=== PATIENT | female | born 1950 | race Caucasian/White ===

== ENCOUNTER 2021-01-14 13:42 | Inpatient (IN) | payer MEDICARE, OTHER ==
[2021-01-14] MEDS ORDERED: Sodium Chloride 0.9% 1,000 ML IV ONE ×2 (14:14→19:05)
[2021-01-14] MEDS ORDERED: Ondansetron 4 MG/2 ML SDV IVPUSH ONE (14:15)
[2021-01-14] MEDS ORDERED: Pantoprazole 80 MG in Sodium Chloride 0.9% 20 ML IVPUSH ONE (14:16)
--- NOTE | 2021-01-14 14:27 | PCM.EKG ---
#1 Interpretation EKG Date: 01/14/21 Time: 14:22 Rhythm: NSR Rate (Beats/Min): 81 ST-T: Normal
--- NOTE | 2021-01-14 15:12 | CR ---
INDICATION: Vomiting. TECHNIQUE: Single portable AP image. COMPARISON: None. FINDINGS: Lungs low in volume, clear. Patient rotated. No pleural effusion. Heart, mediastinum and pulmonary vessels within normal limits, allowing for the shallow inspiration. Post coronary bypass. Right chest and left axillary postop changes also. No significant osseous abnormality. IMPRESSION: Essentially negative, allowing for low lung volumes. Dictated by Marlon Garcia MD @ 01/14/2021 3:12:[address] Marlon Garcia @ Jan 14 2021 3:12PM
[2021-01-14 15:30] LABS: BLOOD UREA NITROGEN,BUN 17 mg/dL (7.0-18.0); CARBON DIOXIDE,CO2 29.4 mmol/L (21.0-32.0); CHLORIDE,CL 102 mmol/L (98-107); GLUCOSE RANDOM 115 mg/dL (74-106); LIPASE 58 U/L (73-393); POTASSIUM,K 4.7 mmol/L (3.5-5.1); SODIUM,NA 139 mmol/L (136-145)
[2021-01-14] MEDS ORDERED: cefTRIAXone 1 GM in Premix Bag 1 BAG IV ONE (15:51)
[2021-01-14] MEDS ORDERED: Iopamidol 755 Mg/ML 100 ML Bottle IVPUSH ONE (16:13)
--- NOTE | 2021-01-14 16:55 | CT ---
INDICATION: Abdominal pain. Poor historian. TECHNIQUE: Volumetric helical scanning of the abdomen and pelvis was performed with 100 cc of Isovue 370 contrast material IV. Coronal and sagittal reconstructions were obtained. COMPARISON: None. FINDINGS: There is no evidence of bowel obstruction or inflammation. There is a large amount of formed stool throughout the colon. The appendix is normal. Post op changes of cholecystectomy are demonstrated. The bile ducts, liver, spleen, adrenal glands, kidneys and pancreas are unremarkable. No lymphadenopathy or free fluid is evident. The uterus and ovaries are unremarkable. The lung bases are clear, and the heart size is normal. Postop changes of coronary bypass and right mastectomy are noted. IMPRESSION: 1. Constipation. 2. Post cholecystectomy, coronary bypass and right mastectomy. Please note that all CT scans at this facility use dose modulation, iterative reconstruction, and/or weight-based dosing when appropriate to reduce radiation dose to as low as reasonably achievable. Dictated by Marlon Garcia MD @ 01/14/2021 4:53:[address] Marlon Garcia @ Jan 14 2021 4:53PM
--- NOTE | 2021-01-14 17:10 | EDM.PDOC ---
ED HPI GENERAL MEDICAL PROBLEM - General Chief Complaint: Gastrointestinal Problem Stated Complaint: VOMITTING Time Seen by Provider: 01/14/21 13:46 Source of Information: Reports: Patient, Family History Limitations: Reports: No Limitations - History of Present Illness INITIAL COMMENTS - FREE TEXT/NARRATIVE: HISTORY AND PHYSICAL: History of present illness: Patient is a 70-year-old female who presents to the ED today with her daughter for concern of vomiting x7 days. Patient states that she has not been able to eat or drink any food or fluids for the past 7 days without immediately vomiting. Patient's daughter states that she currently has a urinary tract infection but has not been able to keep the antibiotics down which was diagnosed in the clinic. Daughter states that patient was provided with Zofran to try to keep the antibiotics down, but despite using the Zofran, has been vomiting and not able to take the antibiotics. Patient states that approximately 2 months ago, her and she has been more depressed and since then. Patient states she is having some associated epigastric discomfort with vomiting. Patient also notes that her throat and stomach feel like they are burning from excessive vomiting. Patient has a history of coronary artery disease, hypertension. Patient denies fever, chills, chest pain, shortness of breath, or cough. Denies headache, neck stiff ness, change in vision, syncope, or near syncope. Denies diarrhea, constipation. Has not noted any blood in urine or stool. Review of systems: As per history of present illness and below otherwise all systems reviewed and negative. Past medical history: As per history of present illness and as reviewed below otherwise noncontributory. Surgical history: As per history of present illness and as reviewed below otherwise noncontributory. Social history: See social history for further information Family history: As per history of present illness and as reviewed below otherwise noncontributory. Physical exam: General: Patient is alert, oriented, and in no acute distress. Patient laying comfortably on exam table. Vitals stable and reviewed by me. HEENT: Atraumatic, normocephalic, pupils equal and reactive bilaterally, negative for conjunctival pallor or scleral icterus, mucous membranes dry, throat clear, neck supple, nontender, trachea midline. No drooling or trismus noted. No meningeal signs. No hot potato voice noted. Lungs: Clear to auscultation, breath sounds equal bilaterally, chest nontender. Heart: S1S2, regular rate and rhythm without overt murmur Abdomen: Soft, nondistended, mild epigastric tenderness to palpation. Negative for masses or hepatosplenomegaly. Negative for costovertebral tenderness. Pelvis: Stable nontender. Genitourinary: Deferred. Rectal: Deferred. Skin: Intact, warm, dry. No lesions or rashes noted. Extremities: Atraumatic, negative for cords or calf pain. Neurovascular unremarkable. Neuro: Awake, alert, oriented. Cranial nerves II through XII unremarkable. Cerebellum unremarkable. Motor and sensory unremarkable throughout. Exam nonfocal. Notes: Upon arrival to the ED, patient is vitally stable, and in no acute distress. She does appear quite dry on exam and her mucous membranes are dry and tacky. She is vitally stable, however, will initiate IV fluids for dehydration and obtain cardiac lab work and abdominal pelvic CT scan with contrast. See Dr. Rocha's dictation for specific EKG interpretation. Normal sinus rhythm without signs of acute ischemia. Lab work shows a mild elevation in creatinine at 1.1. Otherwise mild derangements unremarkable. Troponin negative. Lipase within normal limits. Urinalysis shows 15-20 white blood cells with positive leukocyte esterase and 15 ketones suggestive of urinary tract infection with likely dehydration. Chest x-ray is essentially negative, allowing for low lung volumes. Abdominal pelvic CT indicates constipation status post cholecystectomy, coronary artery bypass and right mastectomy. Upon reevaluation of patient, she remains vitally stable and has improvement of her nausea but does have occasional dry heaving episodes. I did call and speak to the hospitalist on-call, Dr. Andrews, and thoroughly discussed patient's case. Will admit to observation. Voices understanding and is agreeable to plan of care. Denies any further questions or concerns at this time. Diagnostics: EKG, CBC, CMP, UA, chest x-ray, troponin, lipase, abdominal pelvic CT, urine culture Therapeutics: Saline, Zofran, Protonix, Rocephin Impression: Urinary tract infection Intractable vomiting Dehydration Plan: Admit to observation Dr. Andrews Definitive disposition and diagnosis as appropriate pending reevaluation and review of above. 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 ED EXAM, GENERAL - Physical Exam Exam: See Below (see dictation) Course - Vital Signs Last Recorded V/S: Last Vital Signs Temp 97.2 F 01/14/21 13:54 Pulse 74 01/14/21 15:00 Resp 17 01/14/21 15:00 BP 144/75 H 01/14/21 15:00 Pulse Ox 96 01/14/21 15:00 - Orders/Labs/Meds Orders: Active Orders 24 hr Category Date Time Status Cardiac Monitoring [RC] . DIRECTED Care 01/14/21 14:16 Active EKG Documentation Completion [RC] STAT Care 01/14/21 14:16 Active COVID-19/FLU A+B [MOLEC] Stat Lab 01/14/21 14:15 Ordered CULTURE URINE [RM] Stat Lab 01/14/21 15:25 Received Medication Orders Docusate Sodium (Docusate Sodium 100 Mg Cap) 100 mg PO BID [facility] Heparin Sodium (Porcine) (Heparin Sodium 5,000 Units/Ml Vial) 5,000 units SUBCUT Q8H GLEN Ceftriaxone Sodium/Dextrose 1 (gm/ Premix) 50 mls @ 100 mls/hr IV Q24H GLEN Sodium Chloride (Normal Saline) 1,000 mls @ 75 mls/hr IV CONTINUOUS ONE Stop: 01/15/21 08:24 Pantoprazole Sodium 40 mg/ (Sodium Chloride) 10 mls @ 300 mls/hr IV Q24H GLEN Ondansetron HCl (Ondansetron 4 Mg Tab.Dis) 4 mg PO Q4H PRN PRN Reason: nausea, able to take PO Labs: Laboratory Tests 01/14/21 01/14/21 01/14/21 Range/Units 14:40 14:40 15:25 WBC 10.36 (4.0-11.0) K/uL RBC 5.06 (4.30-5.90) M/uL Hgb 15.5 (12.0-16.0) g/dL Hct 47.2 H (36.0-46.0) % MCV 93.3 (80.0-98.0) fL MCH 30.6 (27.0-32.0) pg MCHC 32.8 (31.0-37.0) g/dL RDW Std Deviation 50.7 (28.0-62.0) fl RDW Coeff of Payam 15 (11.0-15.0) % Plt Count 268 (150-400) K/uL MPV 11.50 (7.40-12.00) fL Neut % (Auto) 72.1 (48.0-80.0) % Lymph % (Auto) 21.1 (16.0-40.0) % [place] % (Auto) 6.4 (0.0-15.0) % Eos % (Auto) 0.2 (0.0-7.0) % Baso % (Auto) 0.2 (0.0-1.5) % Neut # (Auto) 7.5 H (1.4-5.7) K/uL Lymph # (Auto) 2.2 (0.6-2.4) K/uL [place] # (Auto) 0.7 (0.0-0.8) K/uL Eos # (Auto) 0.0 (0.0-0.7) K/uL Baso # (Auto) 0.0 (0.0-0.1) K/uL Nucleated RBC % 0.0 /100WBC Nucleated RBCs # 0 K/uL Sodium 139 (136-145) mmol/L Potassium 4.7 (3.5-5.1) mmol/L Chloride 102 (98-107) mmol/L Carbon Dioxide 29.4 (21.0-32.0) mmol/L BUN 17 (7.0-18.0) mg/dL Creatinine 1.1 H (0.6-1.0) mg/dL Est Cr Clr Drug Dosing 49.65 mL/min Estimated GFR (MDRD) 48.8 ml/min Glucose 115 H (74-106) mg/dL Calcium 9.4 (8.5-10.1) mg/dL Total Bilirubin 0.4 (0.2-1.0) mg/dL AST 11 L (15-37) IU/L ALT 14 (14-63) IU/L Alkaline Phosphatase 97 (46-116) U/L Troponin I < 0.050 (0.000-0.056) ng/mL Total Protein 7.5 (6.4-8.2) g/dL Albumin 3.4 (3.4-5.0) g/dL Globulin 4.1 H (2.6-4.0) g/dL Albumin/Globulin Ratio 0.8 L (0.9-1.6) Lipase 58 L (73-393) U/L Urine Color YELLOW Urine Appearance SLT CLOUDY Urine pH 5.5 (5.0-8.0) Ur Specific [place] >= 1.030 (1.001-1.035) Urine Protein NEGATIVE (NEGATIVE) mg/dL Urine Glucose (UA) NEGATIVE (NEGATIVE) mg/dL Urine Ketones 15 H (NEGATIVE) mg/dL Urine Occult Blood NEGATIVE (NEGATIVE) Urine Nitrite NEGATIVE (NEGATIVE) Urine Bilirubin SMALL H (NEGATIVE) Urine Ictotest NEGATIVE Urine Urobilinogen 0.2 (<2.0) EU/dL Ur Leukocyte Esterase SMALL H (NEGATIVE) Urine RBC 0-2 (0-2/HPF) Urine WBC 15-20 (0-5/HPF) Ur Epithelial Cells FEW (NONE-FEW) Urine Bacteria FEW (NEGATIVE) Meds: Medications Generic Name Dose Route Start Last Admin Trade Name Freq PRN Reason Stop Dose Admin Docusate Sodium 100 mg 01/14/21 21:00 Docusate Sodium 100 Mg Cap PO BID GLEN Heparin Sodium (Porcine) 5,000 units 01/14/21 20:00 Heparin Sodium 5,000 Units/Ml Vial SUBCUT Q8H GLEN Ceftriaxone Sodium/Dextrose 1 50 mls @ 100 mls/hr 01/15/21 19:00 gm/ Premix IV Q24H GLEN Sodium Chloride 1,000 mls @ 75 mls/hr 01/14/21 19:05 Normal Saline IV 01/15/21 08:24 CONTINUOUS ONE Pantoprazole Sodium 40 mg/ 10 mls @ 300 mls/hr 01/15/21 19:00 Sodium Chloride IV Q24H GLEN Ondansetron HCl 4 mg 01/14/21 19:01 Ondansetron 4 Mg Tab.Dis PO Q4H PRN nausea, able to take PO Discontinued Medications Generic Name Dose Route Start Last Admin Trade Name Freq PRN Reason Stop Dose Admin Sodium Chloride 1,000 mls @ 500 mls/hr 01/14/21 14:14 01/14/21 14:33 Normal Saline IV 01/14/21 16:13 500 mls/hr BOLUS ONE Administration Pantoprazole Sodium 80 mg/ 20 mls @ 420 mls/hr 01/14/21 14:16 01/14/21 14:37 Sodium Chloride IVPUSH 01/14/21 14:18 420 mls/hr ONETIME ONE Administration Ceftriaxone Sodium/Dextrose 1 50 mls @ 100 mls/hr 01/14/21 15:51 01/14/21 17:16 gm/ Premix IV 01/14/21 16:20 100 mls/hr ONETIME ONE Administration Pantoprazole Sodium 40 mg/ 10 mls @ 300 mls/hr 01/14/21 19:15 Sodium Chloride IV Q24H GLEN Iopamidol 100 ml 01/14/21 16:13 01/14/21 16:13 Iopamidol 755 Mg/Ml 100 Ml Bottle IVPUSH 01/14/21 16:14 100 ml ONETIME ONE Administration Ondansetron HCl 4 mg 01/14/21 14:15 01/14/21 14:33 Ondansetron 4 Mg/2 Ml Sdv IVPUSH 01/14/21 14:16 4 mg ONETIME ONE Administration Departure - Departure Time of Disposition: 17:09 Disposition: Refer to Observation Clinical Impression: Dehydration Urinary tract infection Qualifiers: Urinary tract infection type: acute cystitis Hematuria presence: without hematuria Qualified Code(s): N30.00 - Acute cystitis without hematuria Intractable vomiting Qualifiers: Vomiting type: unspecified Nausea presence: with nausea Qualified Code(s): R11.2 - Nausea with vomiting, unspecified - Discharge Information Sepsis Event Note (ED) - Evaluation Sepsis Screening Result: No Definite Risk - Focused Exam Vital Signs: Vital Signs Temp Pulse Resp BP Pulse Ox 01/14/21 15:00 74 17 144/75 H 96 01/14/21 13:54 97.2 F 89 20 121/97 H 96 - My Orders Last 24 Hours: My Active Orders 01/14/21 14:15 COVID-19/FLU A+B [MOLEC] Stat 01/14/21 14:16 Cardiac Monitoring [RC] . DIRECTED EKG Documentation Completion [RC] STAT 01/14/21 15:25 CULTURE URINE [RM] Stat - Assessment/Plan Last 24 Hours: My Active Orders 01/14/21 14:15 COVID-19/FLU A+B [MOLEC] Stat 01/14/21 14:16 Cardiac Monitoring [RC] . DIRECTED EKG Documentation Completion [RC] STAT 01/14/21 15:25 CULTURE URINE [RM] Stat
--- NOTE | 2021-01-14 18:49 | PCM.HP.2 ---
H&P History of Present Illness - General Date of Service: 01/14/21 Admit Problem/Dx: Admission Diagnosis/Problem Admission Diagnosis/Problem Urinary tract infection Source of Information: Patient, Family - History of Present Illness Initial Comments - Free Text/Narative: Patient is a 70-year-old female with a significant past medical history of breast cancer status post right mastectomy, coronary artery disease status post stent placement, AAA repair, daily tobacco abuse of 1 pack/day: Presenting today accompanied with daughter with worsening nausea/vomiting x3 to 4 days. Per daughter patient was recently discharged from a outpatient custodial facility in [place] and had traveled here arriving to [place] on Sunday was still having continuous nausea vomiting and no bowel movements x7 days. Has been seen by an outpatient provider and provided antibiotics for UTI however did not complete this antibiotic secondary to persistent nausea/vomiting. Patient also has been not eating/drinking due to initial complaint but otherwise is not having any fevers, chills, chest pain, shortness of breath, lower extremity swelling. ED course: EKG: NSR without ST elevation/depression. CMP: 1.1 creatinine with HANS. Troponin negative. Lipase negative. UA positive for leukocyte esterase and ketones. Chest x-ray negative allowing for low lung volumes. Abdominal pelvic CT suggests constipation status post cholecystectomy coronary bypass and right mastectomy Patient was given 1 L fluid, Zofran and Rocephin Bedside: Admits to similar story as above. Endorses that she was supposed to be admitted to the local custodial/[place] however was too sick to be admitted and proceeded to the ED. 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: Endocrine/Metabolic History: Reports: Other (See Below) Other Endocrine/Metabolic History: pt states she had elevated blood sugar "a long time ago" - Past Surgical History Cardiovascular Surgical History: Reports: AAA Repair Female Surgical History: Reports: None Endocrine Surgical History: Reports: None Social & Family History - Family History Family Medical History: No Pertinent Family History - Tobacco Use Tobacco Use Status *Q: Never Tobacco User Second Hand Smoke Exposure: No - Caffeine Use Caffeine Use: Reports: None - Recreational Drug Use Recreational Drug Use: No H&P Review of Systems - Review of Systems: Review Of Systems: See Below General: Denies: Fever, Chills, Malaise, Weakness HEENT: Reports: No Symptoms Pulmonary: Reports: No Symptoms Cardiovascular: Reports: No Symptoms Gastrointestinal: Reports: Constipation, Decreased Appetite, Flatus, Vomiting. Denies: Abdominal Pain, Diarrhea Genitourinary: Denies: Dysuria, Burning, Pain, Urgency, Hematuria Skin: Reports: No Symptoms Psychiatric: Reports: No Symptoms Neurological: Reports: Headache Exam - Exam Exam: See Below - Vital Signs Vital Signs: Last Vital Signs Temp 97.2 F 01/14/21 13:54 Pulse 74 01/14/21 15:00 Resp 17 01/14/21 15:00 BP 144/75 H 01/14/21 15:00 Pulse Ox 96 01/14/21 15:00 Weight: 68.039 kg - Exam Quality Assessment: No: Supplemental Oxygen General: Alert, Oriented, Cooperative HEENT: Other (mildly dry oral mucosa ) Neck: Supple, Trachea Midline Lungs: Normal Respiratory Effort, Other (mildly diminshed BS bilatareally ; no increased WOB ) Cardiovascular: Regular Rate, Regular Rhythm GI/Abdominal Exam: Soft, Non-Tender Extremities: Normal Inspection Skin: Warm, Dry Neuro Extensive - Mental Status: Alert, Oriented x3, Normal Mood/Affect Psychiatric: Alert, Normal Mood - Patient Data Lab Results Last 24 hrs: Laboratory Results - last 24 hr 01/14/21 01/14/21 01/14/21 Range/Units 14:40 14:40 15:25 WBC 10.36 (4.0-11.0) K/uL RBC 5.06 (4.30-5.90) M/uL Hgb 15.5 (12.0-16.0) g/dL Hct 47.2 H (36.0-46.0) % MCV 93.3 (80.0-98.0) fL MCH 30.6 (27.0-32.0) pg MCHC 32.8 (31.0-37.0) g/dL RDW Std Deviation 50.7 (28.0-62.0) fl RDW Coeff of [place] 15 (11.0-15.0) % Plt Count 268 (150-400) K/uL MPV 11.50 (7.40-12.00) fL Neut % (Auto) 72.1 (48.0-80.0) % Lymph % (Auto) 21.1 (16.0-40.0) % [place] % (Auto) 6.4 (0.0-15.0) % Eos % (Auto) 0.2 (0.0-7.0) % Baso % (Auto) 0.2 (0.0-1.5) % Neut # (Auto) 7.5 H (1.4-5.7) K/uL Lymph # (Auto) 2.2 (0.6-2.4) K/uL [place] # (Auto) 0.7 (0.0-0.8) K/uL Eos # (Auto) 0.0 (0.0-0.7) K/uL Baso # (Auto) 0.0 (0.0-0.1) K/uL Nucleated RBC % 0.0 /100WBC Nucleated RBCs # 0 K/uL Sodium 139 (136-145) mmol/L Potassium 4.7 (3.5-5.1) mmol/L Chloride 102 (98-107) mmol/L Carbon Dioxide 29.4 (21.0-32.0) mmol/L BUN 17 (7.0-18.0) mg/dL Creatinine 1.1 H (0.6-1.0) mg/dL Est Cr Clr Drug Dosing 49.65 mL/min Estimated GFR (MDRD) 48.8 ml/min Glucose 115 H (74-106) mg/dL Calcium 9.4 (8.5-10.1) mg/dL Total Bilirubin 0.4 (0.2-1.0) mg/dL AST 11 L (15-37) IU/L ALT 14 (14-63) IU/L Alkaline Phosphatase 97 (46-116) U/L Troponin I < 0.050 (0.000-0.056) ng/mL Total Protein 7.5 (6.4-8.2) g/dL Albumin 3.4 (3.4-5.0) g/dL Globulin 4.1 H (2.6-4.0) g/dL Albumin/Globulin Ratio 0.8 L (0.9-1.6) Lipase 58 L (73-393) U/L Urine Color YELLOW Urine Appearance SLT CLOUDY Urine pH 5.5 (5.0-8.0) Ur Specific [place] >= 1.030 (1.001-1.035) Urine Protein NEGATIVE (NEGATIVE) mg/dL Urine Glucose (UA) NEGATIVE (NEGATIVE) mg/dL Urine Ketones 15 H (NEGATIVE) mg/dL Urine Occult Blood NEGATIVE (NEGATIVE) Urine Nitrite NEGATIVE (NEGATIVE) Urine Bilirubin SMALL H (NEGATIVE) Urine Ictotest NEGATIVE Urine Urobilinogen 0.2 (<2.0) EU/dL Ur Leukocyte Esterase SMALL H (NEGATIVE) Urine RBC 0-2 (0-2/HPF) Urine WBC 15-20 (0-5/HPF) Ur Epithelial Cells FEW (NONE-FEW) Urine Bacteria FEW (NEGATIVE) Result Diagrams: 01/14/21 14:40 01/14/21 14:40 Sepsis Event Note - Evaluation Sepsis Screening Result: No Definite Risk - Focused Exam Vital Signs: Vital Signs Temp Pulse Resp BP Pulse Ox 01/14/21 15:00 74 17 144/75 H 96 01/14/21 13:54 97.2 F 89 20 121/97 H 96 - Problem List (1) Constipation SNOMED Code(s): 94566779 ICD Code: K59.00 - CONSTIPATION, UNSPECIFIED Status: Acute Current Visit: Yes (2) Urinary tract infection SNOMED Code(s): 69021375 ICD Code: N39.0 - URINARY TRACT INFECTION, SITE NOT SPECIFIED Status: Acute Current Visit: Yes Qualifiers: Urinary tract infection type: acute cystitis Hematuria presence: without hematuria Qualified Code(s): N30.00 - Acute cystitis without hematuria (3) Intractable vomiting SNOMED Code(s): 668284793 ICD Code: R11.10 - VOMITING, UNSPECIFIED Status: Acute Current Visit: Yes Qualifiers: Vomiting type: unspecified Nausea presence: with nausea Qualified Code(s): R11.2 - Nausea with vomiting, unspecified (4) Dehydration SNOMED Code(s): 01002362 ICD Code: E86.0 - DEHYDRATION Status: Acute Current Visit: Yes Problem List Initiated/Reviewed/Updated: Yes Orders Last 24hrs: Active Orders 24 hr Category Date Time Status Admission Status [Patient Status] [ADT] Stat ADT 01/14/21 17:08 Active Cardiac Monitoring [RC] . DIRECTED Care 01/14/21 14:16 Active EKG Documentation Completion [RC] STAT Care 01/14/21 14:16 Active COVID-19/FLU A+B [MOLEC] Stat Lab 01/14/21 14:15 Ordered CULTURE URINE [RM] Stat Lab 01/14/21 15:25 Received Assessment/Plan Comment:: Assessment: 1. Intractable nausea and vomiting in the setting of UTI/constipation 2. Urinary tract infection 3. Constipation 4. Past medical history: Breast cancer status postmastectomy, coronary artery disease status post coronary artery placement not on anticoagulation, daily tobacco abuse Plan Admit to observation. DNR/DNI. I's and O's per routine. Vitals per routine. DVT prophylaxis: SCDs GI prophylax pantoprazole 40 daily. 1. Intractable nausea/vomiting: Etiology most likely from constipation in light of her UTI; continue ceftriaxone awaiting urine cultures. Last bowel movement 4 to 5 days prior possibly longer; consider oral stool softeners and be more aggressive if necessary; Continue IV fluids due to mild dehydration noted on examination and on UA CT abdomen otherwise did not show any other acute processes. 2. UTI: continue CTX q 24 hrs; Ucx pending pt denies any back pain/flank pain no abdominal/flank tenderness appreciated 3. Constipation: Colace BID scheduled for now ; IV fluids of 75 cc/hr Zofran ordered for N/Vomiting; improved since ER visit 4. PMH: medication list not available at this time; will await daughter to bring in medication list to update and resume as necessary.
[2021-01-14] MEDS ORDERED: Ondansetron 4 MG Tab.DIS PO PRN (19:01)
[2021-01-14] MEDS ORDERED: Pantoprazole 40 MG in Sodium Chloride 0.9% 10 ML IV SCH (19:15)
[2021-01-14] MEDS: Heparin Sodium 5,000 Units/ML Vial SUBCUT SCH (20:00)
[2021-01-14] MEDS: Docusate Sodium 100 MG Cap PO SCH (20:30)
[2021-01-15 02:15] LABS: CORONAVIRUS COVID-19 NAA NEGATIVE (NEGATIVE); INFLUENZA A NAA NEGATIVE (NEGATIVE); INFLUENZA B NAA NEGATIVE (NEGATIVE)
[2021-01-15] MEDS: Heparin Sodium 5,000 Units/ML Vial SUBCUT SCH ×3 (04:00→20:45)
[2021-01-15 06:10] LABS: CARBON DIOXIDE,CO2 28.3 mmol/L (21.0-32.0); POTASSIUM,K 3.7 mmol/L (3.5-5.1)
[2021-01-15] MEDS: Docusate Sodium 100 MG Cap PO SCH ×2 (08:11→20:45)
[2021-01-15] MEDS ORDERED: Bisacodyl 10 MG Supp RECTAL ONE (09:15)
[2021-01-15] MEDS: Magnesium Hydroxide 400 MG/5 ML Susp 30 ML Cup PO PRN (11:48)
--- NOTE | 2021-01-15 12:01 | PCM.PN ---
<Brianne Garcia - Last Filed: 01/15/21 13:09> - General Info Date of Service: 01/15/21 Subjective Update: Bedside: on commode but in no acute distress. endorses no vomiting/nausea since last night but has not had a BM yet no other complaints Functional Status: Reports: Pain Controlled - Review of Systems General: Reports: No Symptoms Cardiovascular: Reports: No Symptoms Gastrointestinal: Reports: Constipation. Denies: Abdominal Pain, Decreased Appetite, Diarrhea Genitourinary: Reports: Burning. Denies: Urgency, Incontinence Skin: Reports: No Symptoms Neurological: Reports: No Symptoms - Patient Data Vitals - Most Recent: Last Vital Signs Temp 97.2 F 01/15/21 08:17 Pulse 73 01/15/21 08:17 Resp 18 01/15/21 08:17 BP 129/68 01/15/21 08:17 Pulse Ox 97 01/15/21 08:17 Weight - Most Recent: 68.039 kg I&O - Last 24 Hours: Intake & Output 01/14/21 01/15/21 01/15/21 22:59 06:59 14:59 Intake Total 896 Balance 896 Lab Results Last 24 Hours: Laboratory Results - last 24 hr 01/14/21 01/14/21 01/14/21 Range/Units 14:40 14:40 15:25 WBC 10.36 (4.0-11.0) K/uL RBC 5.06 (4.30-5.90) M/uL Hgb 15.5 (12.0-16.0) g/dL Hct 47.2 H (36.0-46.0) % MCV 93.3 (80.0-98.0) fL MCH 30.6 (27.0-32.0) pg MCHC 32.8 (31.0-37.0) g/dL RDW Std Deviation 50.7 (28.0-62.0) fl RDW Coeff of Payam 15 (11.0-15.0) % Plt Count 268 (150-400) K/uL MPV 11.50 (7.40-12.00) fL Neut % (Auto) 72.1 (48.0-80.0) % Lymph % (Auto) 21.1 (16.0-40.0) % [place] % (Auto) 6.4 (0.0-15.0) % Eos % (Auto) 0.2 (0.0-7.0) % Baso % (Auto) 0.2 (0.0-1.5) % Neut # (Auto) 7.5 H (1.4-5.7) K/uL Lymph # (Auto) 2.2 (0.6-2.4) K/uL [place] # (Auto) 0.7 (0.0-0.8) K/uL Eos # (Auto) 0.0 (0.0-0.7) K/uL Baso # (Auto) 0.0 (0.0-0.1) K/uL Nucleated RBC % 0.0 /100WBC Nucleated RBCs # 0 K/uL INR Sodium 139 (136-145) mmol/L Potassium 4.7 (3.5-5.1) mmol/L Chloride 102 (98-107) mmol/L Carbon Dioxide 29.4 (21.0-32.0) mmol/L BUN 17 (7.0-18.0) mg/dL Creatinine 1.1 H (0.6-1.0) mg/dL Est Cr Clr Drug Dosing 49.65 mL/min Estimated GFR (MDRD) 48.8 ml/min Glucose 115 H (74-106) mg/dL Calcium 9.4 (8.5-10.1) mg/dL Total Bilirubin 0.4 (0.2-1.0) mg/dL AST 11 L (15-37) IU/L ALT 14 (14-63) IU/L Alkaline Phosphatase 97 (46-116) U/L Troponin I < 0.050 (0.000-0.056) ng/mL Total Protein 7.5 (6.4-8.2) g/dL Albumin 3.4 (3.4-5.0) g/dL Globulin 4.1 H (2.6-4.0) g/dL Albumin/Globulin Ratio 0.8 L (0.9-1.6) Lipase 58 L (73-393) U/L Urine Color YELLOW Urine Appearance SLT CLOUDY Urine pH 5.5 (5.0-8.0) Ur Specific [place] >= 1.030 (1.001-1.035) Urine Protein NEGATIVE (NEGATIVE) mg/dL Urine Glucose (UA) NEGATIVE (NEGATIVE) mg/dL Urine Ketones 15 H (NEGATIVE) mg/dL Urine Occult Blood NEGATIVE (NEGATIVE) Urine Nitrite NEGATIVE (NEGATIVE) Urine Bilirubin SMALL H (NEGATIVE) Urine Ictotest NEGATIVE Urine Urobilinogen 0.2 (<2.0) EU/dL Ur Leukocyte Esterase SMALL H (NEGATIVE) Urine RBC 0-2 (0-2/HPF) Urine WBC 15-20 (0-5/HPF) Ur Epithelial Cells FEW (NONE-FEW) Urine Bacteria FEW (NEGATIVE) Influenza Type A RNA (NEGATIVE) Influenza Type B RNA (NEGATIVE) SARS-CoV-2 RNA (BRITTANY) (NEGATIVE) 01/15/21 01/15/21 01/15/21 Range/Units 01:00 04:57 04:57 WBC 10.02 (4.0-11.0) K/uL RBC 4.64 (4.30-5.90) M/uL Hgb 14.1 (12.0-16.0) g/dL Hct 43.5 (36.0-46.0) % MCV 93.8 (80.0-98.0) fL MCH 30.4 (27.0-32.0) pg MCHC 32.4 (31.0-37.0) g/dL RDW Std Deviation 51.1 (28.0-62.0) fl RDW Coeff of Payam 15 (11.0-15.0) % Plt Count 258 (150-400) K/uL MPV 12.50 H (7.40-12.00) fL Neut % (Auto) 71.1 (48.0-80.0) % Lymph % (Auto) 21.3 (16.0-40.0) % [place] % (Auto) 6.8 (0.0-15.0) % Eos % (Auto) 0.4 (0.0-7.0) % Baso % (Auto) 0.4 (0.0-1.5) % Neut # (Auto) 7.1 H (1.4-5.7) K/uL Lymph # (Auto) 2.1 (0.6-2.4) K/uL [place] # (Auto) 0.7 (0.0-0.8) K/uL Eos # (Auto) 0.0 (0.0-0.7) K/uL Baso # (Auto) 0.0 (0.0-0.1) K/uL Nucleated RBC % 0.0 /100WBC Nucleated RBCs # 0 K/uL INR Sodium 140 (136-145) mmol/L Potassium 3.7 (3.5-5.1) mmol/L Chloride 102 (98-107) mmol/L Carbon Dioxide 28.3 (21.0-32.0) mmol/L BUN 15 (7.0-18.0) mg/dL Creatinine 1.0 (0.6-1.0) mg/dL Est Cr Clr Drug Dosing 53.14 mL/min Estimated GFR (MDRD) 54.5 ml/min Glucose 89 (74-106) mg/dL Calcium 8.5 (8.5-10.1) mg/dL Total Bilirubin 0.4 (0.2-1.0) mg/dL AST 11 L (15-37) IU/L ALT 13 L (14-63) IU/L Alkaline Phosphatase 84 (46-116) U/L Troponin I (0.000-0.056) ng/mL Total Protein 6.7 (6.4-8.2) g/dL Albumin 3.1 L (3.4-5.0) g/dL Globulin 3.6 (2.6-4.0) g/dL Albumin/Globulin Ratio 0.9 (0.9-1.6) Lipase (73-393) U/L Urine Color Urine Appearance Urine pH (5.0-8.0) Ur Specific [place] (1.001-1.035) Urine Protein (NEGATIVE) mg/dL Urine Glucose (UA) (NEGATIVE) mg/dL Urine Ketones (NEGATIVE) mg/dL Urine Occult Blood (NEGATIVE) Urine Nitrite (NEGATIVE) Urine Bilirubin (NEGATIVE) Urine Ictotest Urine Urobilinogen (<2.0) EU/dL Ur Leukocyte Esterase (NEGATIVE) Urine RBC (0-2/HPF) Urine WBC (0-5/HPF) Ur Epithelial Cells (NONE-FEW) Urine Bacteria (NEGATIVE) Influenza Type A RNA NEGATIVE (NEGATIVE) Influenza Type B RNA NEGATIVE (NEGATIVE) SARS-CoV-2 RNA (BRITTANY) NEGATIVE (NEGATIVE) 01/15/21 Range/Units 04:57 WBC (4.0-11.0) K/uL RBC (4.30-5.90) M/uL Hgb (12.0-16.0) g/dL Hct (36.0-46.0) % MCV (80.0-98.0) fL MCH (27.0-32.0) pg MCHC (31.0-37.0) g/dL RDW Std Deviation (28.0-62.0) fl RDW Coeff of Payam (11.0-15.0) % Plt Count (150-400) K/uL MPV (7.40-12.00) fL Neut % (Auto) (48.0-80.0) % Lymph % (Auto) (16.0-40.0) % [place] % (Auto) (0.0-15.0) % Eos % (Auto) (0.0-7.0) % Baso % (Auto) (0.0-1.5) % Neut # (Auto) (1.4-5.7) K/uL Lymph # (Auto) (0.6-2.4) K/uL [place] # (Auto) (0.0-0.8) K/uL Eos # (Auto) (0.0-0.7) K/uL Baso # (Auto) (0.0-0.1) K/uL Nucleated RBC % /100WBC Nucleated RBCs # K/uL INR 1.10 Sodium (136-145) mmol/L Potassium (3.5-5.1) mmol/L Chloride (98-107) mmol/L Carbon Dioxide (21.0-32.0) mmol/L BUN (7.0-18.0) mg/dL Creatinine (0.6-1.0) mg/dL Est Cr Clr Drug Dosing mL/min Estimated GFR (MDRD) ml/min Glucose (74-106) mg/dL Calcium (8.5-10.1) mg/dL Total Bilirubin (0.2-1.0) mg/dL AST (15-37) IU/L ALT (14-63) IU/L Alkaline Phosphatase (46-116) U/L Troponin I (0.000-0.056) ng/mL Total Protein (6.4-8.2) g/dL Albumin (3.4-5.0) g/dL Globulin (2.6-4.0) g/dL Albumin/Globulin Ratio (0.9-1.6) Lipase (73-393) U/L Urine Color Urine Appearance Urine pH (5.0-8.0) Ur Specific [place] (1.001-1.035) Urine Protein (NEGATIVE) mg/dL Urine Glucose (UA) (NEGATIVE) mg/dL Urine Ketones (NEGATIVE) mg/dL Urine Occult Blood (NEGATIVE) Urine Nitrite (NEGATIVE) Urine Bilirubin (NEGATIVE) Urine Ictotest Urine Urobilinogen (<2.0) EU/dL Ur Leukocyte Esterase (NEGATIVE) Urine RBC (0-2/HPF) Urine WBC (0-5/HPF) Ur Epithelial Cells (NONE-FEW) Urine Bacteria (NEGATIVE) Influenza Type A RNA (NEGATIVE) Influenza Type B RNA (NEGATIVE) SARS-CoV-2 RNA (BRITTANY) (NEGATIVE) Med Orders - Current: Current Medications Docusate Sodium (Docusate Sodium 100 Mg Cap) 100 mg PO BID [facility] Last Admin: 01/15/21 08:11 Dose: 100 mg Documented by: Heparin Sodium (Porcine) (Heparin Sodium 5,000 Units/Ml Vial) 5,000 units SUBCUT Q8H [facility] Last Admin: 01/15/21 11:41 Dose: 5,000 units Documented by: Ceftriaxone Sodium/Dextrose 1 (gm/ Premix) 50 mls @ 100 mls/hr IV Q24H [facility]EN Pantoprazole Sodium 40 mg/ (Sodium Chloride) 10 mls @ 300 mls/hr IV Q24H [facility]EN Magnesium Hydroxide (Magnesium Hydroxide 400 Mg/5 Ml Susp 30 Ml Cup) 30 ml PO Q6H PRN PRN Reason: Constipation Last Admin: 01/15/21 11:48 Dose: 30 ml Documented by: Ondansetron HCl (Ondansetron 4 Mg Tab.Dis) 4 mg PO Q4H PRN PRN Reason: nausea, able to take PO Discontinued Medications Bisacodyl (Bisacodyl 10 Mg Supp) 10 mg RECTAL ONETIME ONE Stop: 01/15/21 09:16 Last Admin: 01/15/21 09:29 Dose: 10 mg Documented by: Sodium Chloride (Normal Saline) 1,000 mls @ 500 mls/hr IV BOLUS ONE Stop: 01/14/21 16:13 Last Admin: 01/14/21 14:33 Dose: 500 mls/hr Documented by: Pantoprazole Sodium 80 mg/ (Sodium Chloride) 20 mls @ 420 mls/hr IVPUSH ONETIME ONE Stop: 01/14/21 14:18 Last Admin: 01/14/21 14:37 Dose: 420 mls/hr Documented by: Ceftriaxone Sodium/Dextrose 1 (gm/ Premix) 50 mls @ 100 mls/hr IV ONETIME ONE Stop: 01/14/21 16:20 Last Admin: 01/14/21 17:16 Dose: 100 mls/hr Documented by: Sodium Chloride (Normal Saline) 1,000 mls @ 75 mls/hr IV CONTINUOUS ONE Stop: 01/15/21 08:24 Last Admin: 01/14/21 20:00 Dose: 75 mls/hr Documented by: Pantoprazole Sodium 40 mg/ (Sodium Chloride) 10 mls @ 300 mls/hr IV Q24H [facility] Iopamidol (Iopamidol 755 Mg/Ml 100 Ml Bottle) 100 ml IVPUSH ONETIME ONE Stop: 01/14/21 16:14 Last Admin: 01/14/21 16:13 Dose: 100 ml Documented by: Ondansetron HCl (Ondansetron 4 Mg/2 Ml Sdv) 4 mg IVPUSH ONETIME ONE Stop: 01/14/21 14:16 Last Admin: 01/14/21 14:33 Dose: 4 mg Documented by: - Exam Quality Assessment: No: Supplemental Oxygen General: Alert, Cooperative, No Acute Distress HEENT: EOMI Neck: Supple Lungs: Clear to Auscultation, Normal Respiratory Effort Cardiovascular: Regular Rate GI/Abdominal Exam: Soft, Non-Tender Extremities: Normal Inspection Psy/Mental Status: Alert, Normal Affect, Normal Mood - Patient Data Lab Results Last 24 hrs: Laboratory Results - last 24 hr 01/14/21 01/14/21 01/14/21 Range/Units 14:40 14:40 15:25 WBC 10.36 (4.0-11.0) K/uL RBC 5.06 (4.30-5.90) M/uL Hgb 15.5 (12.0-16.0) g/dL Hct 47.2 H (36.0-46.0) % MCV 93.3 (80.0-98.0) fL MCH 30.6 (27.0-32.0) pg MCHC 32.8 (31.0-37.0) g/dL RDW Std Deviation 50.7 (28.0-62.0) fl RDW Coeff of Payam 15 (11.0-15.0) % Plt Count 268 (150-400) K/uL MPV 11.50 (7.40-12.00) fL Neut % (Auto) 72.1 (48.0-80.0) % Lymph % (Auto) 21.1 (16.0-40.0) % [place] % (Auto) 6.4 (0.0-15.0) % Eos % (Auto) 0.2 (0.0-7.0) % Baso % (Auto) 0.2 (0.0-1.5) % Neut # (Auto) 7.5 H (1.4-5.7) K/uL Lymph # (Auto) 2.2 (0.6-2.4) K/uL [place] # (Auto) 0.7 (0.0-0.8) K/uL Eos # (Auto) 0.0 (0.0-0.7) K/uL Baso # (Auto) 0.0 (0.0-0.1) K/uL Nucleated RBC % 0.0 /100WBC Nucleated RBCs # 0 K/uL INR Sodium 139 (136-145) mmol/L Potassium 4.7 (3.5-5.1) mmol/L Chloride 102 (98-107) mmol/L Carbon Dioxide 29.4 (21.0-32.0) mmol/L BUN 17 (7.0-18.0) mg/dL Creatinine 1.1 H (0.6-1.0) mg/dL Est Cr Clr Drug Dosing 49.65 mL/min Estimated GFR (MDRD) 48.8 ml/min Glucose 115 H (74-106) mg/dL Calcium 9.4 (8.5-10.1) mg/dL Total Bilirubin 0.4 (0.2-1.0) mg/dL AST 11 L (15-37) IU/L ALT 14 (14-63) IU/L Alkaline Phosphatase 97 (46-116) U/L Troponin I < 0.050 (0.000-0.056) ng/mL Total Protein 7.5 (6.4-8.2) g/dL Albumin 3.4 (3.4-5.0) g/dL Globulin 4.1 H (2.6-4.0) g/dL Albumin/Globulin Ratio 0.8 L (0.9-1.6) Lipase 58 L (73-393) U/L Urine Color YELLOW Urine Appearance SLT CLOUDY Urine pH 5.5 (5.0-8.0) Ur Specific [place] >= 1.030 (1.001-1.035) Urine Protein NEGATIVE (NEGATIVE) mg/dL Urine Glucose (UA) NEGATIVE (NEGATIVE) mg/dL Urine Ketones 15 H (NEGATIVE) mg/dL Urine Occult Blood NEGATIVE (NEGATIVE) Urine Nitrite NEGATIVE (NEGATIVE) Urine Bilirubin SMALL H (NEGATIVE) Urine Ictotest NEGATIVE Urine Urobilinogen 0.2 (<2.0) EU/dL Ur Leukocyte Esterase SMALL H (NEGATIVE) Urine RBC 0-2 (0-2/HPF) Urine WBC 15-20 (0-5/HPF) Ur Epithelial Cells FEW (NONE-FEW) Urine Bacteria FEW (NEGATIVE) Influenza Type A RNA (NEGATIVE) Influenza Type B RNA (NEGATIVE) SARS-CoV-2 RNA (BRITTANY) (NEGATIVE) 01/15/21 01/15/21 01/15/21 Range/Units 01:00 04:57 04:57 WBC 10.02 (4.0-11.0) K/uL RBC 4.64 (4.30-5.90) M/uL Hgb 14.1 (12.0-16.0) g/dL Hct 43.5 (36.0-46.0) % MCV 93.8 (80.0-98.0) fL MCH 30.4 (27.0-32.0) pg MCHC 32.4 (31.0-37.0) g/dL RDW Std Deviation 51.1 (28.0-62.0) fl RDW Coeff of Payam 15 (11.0-15.0) % Plt Count 258 (150-400) K/uL MPV 12.50 H (7.40-12.00) fL Neut % (Auto) 71.1 (48.0-80.0) % Lymph % (Auto) 21.3 (16.0-40.0) % [place] % (Auto) 6.8 (0.0-15.0) % Eos % (Auto) 0.4 (0.0-7.0) % Baso % (Auto) 0.4 (0.0-1.5) % Neut # (Auto) 7.1 H (1.4-5.7) K/uL Lymph # (Auto) 2.1 (0.6-2.4) K/uL [place] # (Auto) 0.7 (0.0-0.8) K/uL Eos # (Auto) 0.0 (0.0-0.7) K/uL Baso # (Auto) 0.0 (0.0-0.1) K/uL Nucleated RBC % 0.0 /100WBC Nucleated RBCs # 0 K/uL INR Sodium 140 (136-145) mmol/L Potassium 3.7 (3.5-5.1) mmol/L Chloride 102 (98-107) mmol/L Carbon Dioxide 28.3 (21.0-32.0) mmol/L BUN 15 (7.0-18.0) mg/dL Creatinine 1.0 (0.6-1.0) mg/dL Est Cr Clr Drug Dosing 53.14 mL/min Estimated GFR (MDRD) 54.5 ml/min Glucose 89 (74-106) mg/dL Calcium 8.5 (8.5-10.1) mg/dL Total Bilirubin 0.4 (0.2-1.0) mg/dL AST 11 L (15-37) IU/L ALT 13 L (14-63) IU/L Alkaline Phosphatase 84 (46-116) U/L Troponin I (0.000-0.056) ng/mL Total Protein 6.7 (6.4-8.2) g/dL Albumin 3.1 L (3.4-5.0) g/dL Globulin 3.6 (2.6-4.0) g/dL Albumin/Globulin Ratio 0.9 (0.9-1.6) Lipase (73-393) U/L Urine Color Urine Appearance Urine pH (5.0-8.0) Ur Specific [place] (1.001-1.035) Urine Protein (NEGATIVE) mg/dL Urine Glucose (UA) (NEGATIVE) mg/dL Urine Ketones (NEGATIVE) mg/dL Urine Occult Blood (NEGATIVE) Urine Nitrite (NEGATIVE) Urine Bilirubin (NEGATIVE) Urine Ictotest Urine Urobilinogen (<2.0) EU/dL Ur Leukocyte Esterase (NEGATIVE) Urine RBC (0-2/HPF) Urine WBC (0-5/HPF) Ur Epithelial Cells (NONE-FEW) Urine Bacteria (NEGATIVE) Influenza Type A RNA NEGATIVE (NEGATIVE) Influenza Type B RNA NEGATIVE (NEGATIVE) SARS-CoV-2 RNA (BRITTANY) NEGATIVE (NEGATIVE) 01/15/21 Range/Units 04:57 WBC (4.0-11.0) K/uL RBC (4.30-5.90) M/uL Hgb (12.0-16.0) g/dL Hct (36.0-46.0) % MCV (80.0-98.0) fL MCH (27.0-32.0) pg MCHC (31.0-37.0) g/dL RDW Std Deviation (28.0-62.0) fl RDW Coeff of Payam (11.0-15.0) % Plt Count (150-400) K/uL MPV (7.40-12.00) fL Neut % (Auto) (48.0-80.0) % Lymph % (Auto) (16.0-40.0) % [place] % (Auto) (0.0-15.0) % Eos % (Auto) (0.0-7.0) % Baso % (Auto) (0.0-1.5) % Neut # (Auto) (1.4-5.7) K/uL Lymph # (Auto) (0.6-2.4) K/uL [place] # (Auto) (0.0-0.8) K/uL Eos # (Auto) (0.0-0.7) K/uL Baso # (Auto) (0.0-0.1) K/uL Nucleated RBC % /100WBC Nucleated RBCs # K/uL INR 1.10 Sodium (136-145) mmol/L Potassium (3.5-5.1) mmol/L Chloride (98-107) mmol/L Carbon Dioxide (21.0-32.0) mmol/L BUN (7.0-18.0) mg/dL Creatinine (0.6-1.0) mg/dL Est Cr Clr Drug Dosing mL/min Estimated GFR (MDRD) ml/min Glucose (74-106) mg/dL Calcium (8.5-10.1) mg/dL Total Bilirubin (0.2-1.0) mg/dL AST (15-37) IU/L ALT (14-63) IU/L Alkaline Phosphatase (46-116) U/L Troponin I (0.000-0.056) ng/mL Total Protein (6.4-8.2) g/dL Albumin (3.4-5.0) g/dL Globulin (2.6-4.0) g/dL Albumin/Globulin Ratio (0.9-1.6) Lipase (73-393) U/L Urine Color Urine Appearance Urine pH (5.0-8.0) Ur Specific [place] (1.001-1.035) Urine Protein (NEGATIVE) mg/dL Urine Glucose (UA) (NEGATIVE) mg/dL Urine Ketones (NEGATIVE) mg/dL Urine Occult Blood (NEGATIVE) Urine Nitrite (NEGATIVE) Urine Bilirubin (NEGATIVE) Urine Ictotest Urine Urobilinogen (<2.0) EU/dL Ur Leukocyte Esterase (NEGATIVE) Urine RBC (0-2/HPF) Urine WBC (0-5/HPF) Ur Epithelial Cells (NONE-FEW) Urine Bacteria (NEGATIVE) Influenza Type A RNA (NEGATIVE) Influenza Type B RNA (NEGATIVE) SARS-CoV-2 RNA (BRITTANY) (NEGATIVE) Result Diagrams: 01/15/21 04:57 01/15/21 04:57 Sepsis Event Note - Evaluation Sepsis Screening Result: No Definite Risk - Focused Exam Vital Signs: Vital Signs Temp Pulse Resp BP Pulse Ox 01/15/21 08:17 97.2 F 73 18 129/68 97 01/15/21 04:00 97.3 F 66 19 135/63 96 - Problem List & Annotations (1) Constipation SNOMED Code(s): 41934581 Code(s): K59.00 - CONSTIPATION, UNSPECIFIED Status: Acute Current Visit: Yes (2) Urinary tract infection SNOMED Code(s): 16990310 Code(s): N39.0 - URINARY TRACT INFECTION, SITE NOT SPECIFIED Status: Acute Current Visit: Yes Qualifiers: Urinary tract infection type: acute cystitis Hematuria presence: without hematuria Qualified Code(s): N30.00 - Acute cystitis without hematuria (3) Intractable vomiting SNOMED Code(s): 034816673 Code(s): R11.10 - VOMITING, UNSPECIFIED Status: Acute Current Visit: Yes Qualifiers: Vomiting type: unspecified Nausea presence: with nausea Qualified Code(s): R11.2 - Nausea with vomiting, unspecified (4) Dehydration SNOMED Code(s): 75321377 Code(s): E86.0 - DEHYDRATION Status: Acute Current Visit: Yes - Problem List Review Problem List Initiated/Reviewed/Updated: Yes - My Orders Last 24 Hours: My Active Orders 01/14/21 19:01 Up With Assistance [RC] ASDIRECTED Ondansetron [Zofran ODT] 4 mg PO Q4H PRN Resuscitation Status Routine 01/14/21 19:02 Antiembolic Devices [RC] PER UNIT ROUTINE Oxygen Therapy [RC] PRN VTE/DVT Education [RC] PER UNIT ROUTINE Vital Signs [RC] Q4H Sequential Compression Device [OM.PC] Per Unit Routine 01/14/21 19:12 Telemetry Monitoring [Cardiac Monitoring] [RC] . DIRECTED 01/14/21 20:00 Heparin Sodium 5,000 units SUBCUT Q8H 01/14/21 21:00 Docusate Sodium [Colace] 100 mg PO BID 01/15/21 Breakfast Clear Liquid Diet [DIET] 01/15/21 11:26 Magnesium Hydroxide [Milk of Magnesia] 30 ml PO Q6H PRN 01/15/21 11:46 Admission Status [Patient Status] [ADT] Routine 01/15/21 19:00 Pantoprazole [ProTONIX IV] 40 mg Sodium Chloride 0.9% [Normal Saline] 10 ml IV Q24H cefTRIAXone [Rocephin in Dextrose,Iso-Osm 1 GM/50 ML] 1 gm Premix Bag 1 bag IV Q24H 01/16/21 05:11 CBC WITH AUTO DIFF [HEME] AM COMPREHENSIVE METABOLIC PN,CMP [CHEM] AM 01/17/21 05:11 CBC WITH AUTO DIFF [HEME] AM COMPREHENSIVE METABOLIC PN,CMP [CHEM] AM - Plan Plan:: Assessment: 1. Intractable nausea and vomiting in the setting of UTI/constipation 2. Urinary tract infection 3. Constipation 4. Past medical history: Breast cancer status postmastectomy, coronary artery disease status post coronary artery placement not on anticoagulation, daily tobacco abuse Plan 1. Intractable nausea/vomiting: much improved; no episodes of emesis since last night continue to monitor. CT abdomen otherwise did not show any other acute processes. 2. UTI: continue CTX q 24 hrs; Ucx pending Awaiting cultures 3. Constipation: Colace BID scheduled for now ; IV fluids of 75 cc/hr Zofran ordered for N/Vomiting; improved since ER visit Did not have a BM w. bisacodyl rectal; will try Miralx prior to considering a fleet enema. 4. PMH:pt unsure if/why she is on clonidine; BP under control as of this AM. will consider restarting if/when BP becomes higher. Continue Lisinopril pt is a [facility] patient; can consider discharge on Sunday if improving; switch to inpatient status, <Adarsh Medina - Last Filed: 01/15/21 16:57> - General Info Subjective Update: I have seen and evaluated the patient. I have discussed findings and treatment plan with resident. I agree with the assessment and plan in the following note. - Patient Data Vitals - Most Recent: Last Vital Signs Temp 36.9 C 01/15/21 16:00 Pulse 64 01/15/21 16:00 Resp 18 01/15/21 16:00 BP 133/59 L 01/15/21 16:00 Pulse Ox 97 01/15/21 16:00 I&O - Last 24 Hours: Intake & Output 01/15/21 01/15/21 01/15/21 06:59 14:59 22:59 Intake Total 896 920 Output Total 400 Balance 896 520 Lab Results Last 24 Hours: Laboratory Results - last 24 hr 01/15/21 01/15/21 01/15/21 Range/Units 01:00 04:57 04:57 WBC 10.02 (4.0-11.0) K/uL RBC 4.64 (4.30-5.90) M/uL Hgb 14.1 (12.0-16.0) g/dL Hct 43.5 (36.0-46.0) % MCV 93.8 (80.0-98.0) fL MCH 30.4 (27.0-32.0) pg MCHC 32.4 (31.0-37.0) g/dL RDW Std Deviation 51.1 (28.0-62.0) fl RDW Coeff of Payam 15 (11.0-15.0) % Plt Count 258 (150-400) K/uL MPV 12.50 H (7.40-12.00) fL Neut % (Auto) 71.1 (48.0-80.0) % Lymph % (Auto) 21.3 (16.0-40.0) % [place] % (Auto) 6.8 (0.0-15.0) % Eos % (Auto) 0.4 (0.0-7.0) % Baso % (Auto) 0.4 (0.0-1.5) % Neut # (Auto) 7.1 H (1.4-5.7) K/uL Lymph # (Auto) 2.1 (0.6-2.4) K/uL [place] # (Auto) 0.7 (0.0-0.8) K/uL Eos # (Auto) 0.0 (0.0-0.7) K/uL Baso # (Auto) 0.0 (0.0-0.1) K/uL Nucleated RBC % 0.0 /100WBC Nucleated RBCs # 0 K/uL INR Sodium 140 (136-145) mmol/L Potassium 3.7 (3.5-5.1) mmol/L Chloride 102 (98-107) mmol/L Carbon Dioxide 28.3 (21.0-32.0) mmol/L BUN 15 (7.0-18.0) mg/dL Creatinine 1.0 (0.6-1.0) mg/dL Est Cr Clr Drug Dosing 53.14 mL/min Estimated GFR (MDRD) 54.5 ml/min Glucose 89 (74-106) mg/dL Calcium 8.5 (8.5-10.1) mg/dL Total Bilirubin 0.4 (0.2-1.0) mg/dL AST 11 L (15-37) IU/L ALT 13 L (14-63) IU/L Alkaline Phosphatase 84 (46-116) U/L Total Protein 6.7 (6.4-8.2) g/dL Albumin 3.1 L (3.4-5.0) g/dL Globulin 3.6 (2.6-4.0) g/dL Albumin/Globulin Ratio 0.9 (0.9-1.6) Influenza Type A RNA NEGATIVE (NEGATIVE) Influenza Type B RNA NEGATIVE (NEGATIVE) SARS-CoV-2 RNA (BRITTANY) NEGATIVE (NEGATIVE) 01/15/21 Range/Units 04:57 WBC (4.0-11.0) K/uL RBC (4.30-5.90) M/uL Hgb (12.0-16.0) g/dL Hct (36.0-46.0) % MCV (80.0-98.0) fL MCH (27.0-32.0) pg MCHC (31.0-37.0) g/dL RDW Std Deviation (28.0-62.0) fl RDW Coeff of Payam (11.0-15.0) % Plt Count (150-400) K/uL MPV (7.40-12.00) fL Neut % (Auto) (48.0-80.0) % Lymph % (Auto) (16.0-40.0) % [place] % (Auto) (0.0-15.0) % Eos % (Auto) (0.0-7.0) % Baso % (Auto) (0.0-1.5) % Neut # (Auto) (1.4-5.7) K/uL Lymph # (Auto) (0.6-2.4) K/uL [place] # (Auto) (0.0-0.8) K/uL Eos # (Auto) (0.0-0.7) K/uL Baso # (Auto) (0.0-0.1) K/uL Nucleated RBC % /100WBC Nucleated RBCs # K/uL INR 1.10 Sodium (136-145) mmol/L Potassium (3.5-5.1) mmol/L Chloride (98-107) mmol/L Carbon Dioxide (21.0-32.0) mmol/L BUN (7.0-18.0) mg/dL Creatinine (0.6-1.0) mg/dL Est Cr Clr Drug Dosing mL/min Estimated GFR (MDRD) ml/min Glucose (74-106) mg/dL Calcium (8.5-10.1) mg/dL Total Bilirubin (0.2-1.0) mg/dL AST (15-37) IU/L ALT (14-63) IU/L Alkaline Phosphatase (46-116) U/L Total Protein (6.4-8.2) g/dL Albumin (3.4-5.0) g/dL Globulin (2.6-4.0) g/dL Albumin/Globulin Ratio (0.9-1.6) Influenza Type A RNA (NEGATIVE) Influenza Type B RNA (NEGATIVE) SARS-CoV-2 RNA (BRITTANY) (NEGATIVE) Med Orders - Current: Current Medications Docusate Sodium (Docusate Sodium 100 Mg Cap) 100 mg PO BID [facility] Last Admin: 01/15/21 08:11 Dose: 100 mg Documented by: Heparin Sodium (Porcine) (Heparin Sodium 5,000 Units/Ml Vial) 5,000 units SUBCUT Q8H [facility] Last Admin: 01/15/21 11:41 Dose: 5,000 units Documented by: Ceftriaxone Sodium/Dextrose 1 (gm/ Premix) 50 mls @ 100 mls/hr IV Q24H [facility] Pantoprazole Sodium 40 mg/ (Sodium Chloride) 10 mls @ 300 mls/hr IV Q24H [facility] Lisinopril (Lisinopril 10 Mg Tab) 10 mg PO DAILY [facility] Last Admin: 01/15/21 13:55 Dose: 10 mg Documented by: Magnesium Hydroxide (Magnesium Hydroxide 400 Mg/5 Ml Susp 30 Ml Cup) 30 ml PO Q6H PRN PRN Reason: Constipation Last Admin: 01/15/21 11:48 Dose: 30 ml Documented by: Ondansetron HCl (Ondansetron 4 Mg Tab.Dis) 4 mg PO Q4H PRN PRN Reason: nausea, able to take PO Discontinued Medications Bisacodyl (Bisacodyl 10 Mg Supp) 10 mg RECTAL ONETIME ONE Stop: 01/15/21 09:16 Last Admin: 01/15/21 09:29 Dose: 10 mg Documented by: Sodium Chloride (Normal Saline) 1,000 mls @ 500 mls/hr IV BOLUS ONE Stop: 01/14/21 16:13 Last Admin: 01/14/21 14:33 Dose: 500 mls/hr Documented by: Pantoprazole Sodium 80 mg/ (Sodium Chloride) 20 mls @ 420 mls/hr IVPUSH ONETIME ONE Stop: 01/14/21 14:18 Last Admin: 01/14/21 14:37 Dose: 420 mls/hr Documented by: Ceftriaxone Sodium/Dextrose 1 (gm/ Premix) 50 mls @ 100 mls/hr IV ONETIME ONE Stop: 01/14/21 16:20 Last Admin: 01/14/21 17:16 Dose: 100 mls/hr Documented by: Sodium Chloride (Normal Saline) 1,000 mls @ 75 mls/hr IV CONTINUOUS ONE Stop: 01/15/21 08:24 Last Admin: 01/14/21 20:00 Dose: 75 mls/hr Documented by: Pantoprazole Sodium 40 mg/ (Sodium Chloride) 10 mls @ 300 mls/hr IV Q24H [facility] Iopamidol (Iopamidol 755 Mg/Ml 100 Ml Bottle) 100 ml IVPUSH ONETIME ONE Stop: 01/14/21 16:14 Last Admin: 01/14/21 16:13 Dose: 100 ml Documented by: Ondansetron HCl (Ondansetron 4 Mg/2 Ml Sdv) 4 mg IVPUSH ONETIME ONE Stop: 01/14/21 14:16 Last Admin: 01/14/21 14:33 Dose: 4 mg Documented by: - Patient Data Lab Results Last 24 hrs: Laboratory Results - last 24 hr 01/15/21 01/15/21 01/15/21 Range/Units 01:00 04:57 04:57 WBC 10.02 (4.0-11.0) K/uL RBC 4.64 (4.30-5.90) M/uL Hgb 14.1 (12.0-16.0) g/dL Hct 43.5 (36.0-46.0) % MCV 93.8 (80.0-98.0) fL MCH 30.4 (27.0-32.0) pg MCHC 32.4 (31.0-37.0) g/dL RDW Std Deviation 51.1 (28.0-62.0) fl RDW Coeff of Payam 15 (11.0-15.0) % Plt Count 258 (150-400) K/uL MPV 12.50 H (7.40-12.00) fL Neut % (Auto) 71.1 (48.0-80.0) % Lymph % (Auto) 21.3 (16.0-40.0) % [place] % (Auto) 6.8 (0.0-15.0) % Eos % (Auto) 0.4 (0.0-7.0) % Baso % (Auto) 0.4 (0.0-1.5) % Neut # (Auto) 7.1 H (1.4-5.7) K/uL Lymph # (Auto) 2.1 (0.6-2.4) K/uL [place] # (Auto) 0.7 (0.0-0.8) K/uL Eos # (Auto) 0.0 (0.0-0.7) K/uL Baso # (Auto) 0.0 (0.0-0.1) K/uL Nucleated RBC % 0.0 /100WBC Nucleated RBCs # 0 K/uL INR Sodium 140 (136-145) mmol/L Potassium 3.7 (3.5-5.1) mmol/L Chloride 102 (98-107) mmol/L Carbon Dioxide 28.3 (21.0-32.0) mmol/L BUN 15 (7.0-18.0) mg/dL Creatinine 1.0 (0.6-1.0) mg/dL Est Cr Clr Drug Dosing 53.14 mL/min Estimated GFR (MDRD) 54.5 ml/min Glucose 89 (74-106) mg/dL Calcium 8.5 (8.5-10.1) mg/dL Total Bilirubin 0.4 (0.2-1.0) mg/dL AST 11 L (15-37) IU/L ALT 13 L (14-63) IU/L Alkaline Phosphatase 84 (46-116) U/L Total Protein 6.7 (6.4-8.2) g/dL Albumin 3.1 L (3.4-5.0) g/dL Globulin 3.6 (2.6-4.0) g/dL Albumin/Globulin Ratio 0.9 (0.9-1.6) Influenza Type A RNA NEGATIVE (NEGATIVE) Influenza Type B RNA NEGATIVE (NEGATIVE) SARS-CoV-2 RNA (BRITTANY) NEGATIVE (NEGATIVE) 01/15/21 Range/Units 04:57 WBC (4.0-11.0) K/uL RBC (4.30-5.90) M/uL Hgb (12.0-16.0) g/dL Hct (36.0-46.0) % MCV (80.0-98.0) fL MCH (27.0-32.0) pg MCHC (31.0-37.0) g/dL RDW Std Deviation (28.0-62.0) fl RDW Coeff of Payam (11.0-15.0) % Plt Count (150-400) K/uL MPV (7.40-12.00) fL Neut % (Auto) (48.0-80.0) % Lymph % (Auto) (16.0-40.0) % [place] % (Auto) (0.0-15.0) % Eos % (Auto) (0.0-7.0) % Baso % (Auto) (0.0-1.5) % Neut # (Auto) (1.4-5.7) K/uL Lymph # (Auto) (0.6-2.4) K/uL [place] # (Auto) (0.0-0.8) K/uL Eos # (Auto) (0.0-0.7) K/uL Baso # (Auto) (0.0-0.1) K/uL Nucleated RBC % /100WBC Nucleated RBCs # K/uL INR 1.10 Sodium (136-145) mmol/L Potassium (3.5-5.1) mmol/L Chloride (98-107) mmol/L Carbon Dioxide (21.0-32.0) mmol/L BUN (7.0-18.0) mg/dL Creatinine (0.6-1.0) mg/dL Est Cr Clr Drug Dosing mL/min Estimated GFR (MDRD) ml/min Glucose (74-106) mg/dL Calcium (8.5-10.1) mg/dL Total Bilirubin (0.2-1.0) mg/dL AST (15-37) IU/L ALT (14-63) IU/L Alkaline Phosphatase (46-116) U/L Total Protein (6.4-8.2) g/dL Albumin (3.4-5.0) g/dL Globulin (2.6-4.0) g/dL Albumin/Globulin Ratio (0.9-1.6) Influenza Type A RNA (NEGATIVE) Influenza Type B RNA (NEGATIVE) SARS-CoV-2 RNA (BRITTANY) (NEGATIVE) Result Diagrams: 01/15/21 04:57 01/15/21 04:57 Sepsis Event Note - Focused Exam Vital Signs: Vital Signs Temp Pulse Resp BP BP Pulse Ox 01/15/21 16:00 36.9 C 64 18 133/59 L 97 01/15/21 13:55 154/70 H 01/15/21 12:00 36.3 C 58 L 18 154/70 H 95 01/15/21 08:17 36.2 C 73 18 129/68 97
[2021-01-15] MEDS: Lisinopril 10 MG Tab PO SCH (13:55)
[2021-01-15] MEDS: Pantoprazole 40 MG in Sodium Chloride 0.9% 10 ML IV SCH (18:01)
[2021-01-15] MEDS ORDERED: cefTRIAXone 1 GM in Premix Bag 1 BAG IV SCH (19:00)
[2021-01-15] MEDS ORDERED: Nystatin Topical Powder 15 GM Bottle TOP PRN (22:30)
[2021-01-16] MEDS: Heparin Sodium 5,000 Units/ML Vial SUBCUT SCH ×3 (03:50→20:09)
[2021-01-16 07:01] LABS: BLOOD UREA NITROGEN,BUN 9 mg/dL (7.0-18.0); CHLORIDE,CL 106 mmol/L (98-107); GLUCOSE RANDOM 94 mg/dL (74-106); POTASSIUM,K 3.6 mmol/L (3.5-5.1); SODIUM,NA 141 mmol/L (136-145)
[2021-01-16] MEDS: Docusate Sodium 100 MG Cap PO SCH ×2 (08:49→20:09)
[2021-01-16] MEDS: Lisinopril 10 MG Tab PO SCH (08:49)
--- NOTE | 2021-01-16 09:28 | PCM.PN ---
- General Info Date of Service: 01/16/21 Admission Dx/Problem (Free Text): Admission Diagnosis/Problem Admission Diagnosis/Problem Urinary tract infection Subjective Update: seen at bedside, eating her breakfast, states passed gas earlier, passed some stool yesterday, feels back to her baseline Functional Status: Reports: Tolerating Diet, Ambulating, Urinating - Review of Systems General: Denies: Fever, Weakness, Fatigue Pulmonary: Denies: Shortness of Breath, Pleuritic Chest Pain Cardiovascular: Denies: Chest Pain, Palpitations Gastrointestinal: Reports: Constipation. Denies: Abdominal Pain, Decreased Appetite, Diarrhea Genitourinary: Denies: Frequency, Burning Musculoskeletal: Denies: Neck Pain, Shoulder Pain Skin: Denies: Cyanosis, Jaundice, Mottled Neurological: Denies: Confusion, Dizziness, Headache - Patient Data Vitals - Most Recent: Last Vital Signs Temp 36.1 C 01/16/21 08:07 Pulse 70 01/16/21 08:07 Resp 16 01/16/21 08:07 BP 125/53 L 01/16/21 08:49 Pulse Ox 94 L 01/16/21 08:07 Weight - Most Recent: 68.039 kg I&O - Last 24 Hours: Intake & Output 01/15/21 01/16/21 01/16/21 22:59 06:59 14:59 Intake Total 980 Output Total 400 400 Balance 580 -400 Lab Results Last 24 Hours: Laboratory Results - last 24 hr 01/16/21 01/16/21 Range/Units 06:15 06:15 WBC 7.40 (4.0-11.0) K/uL RBC 4.23 L (4.30-5.90) M/uL Hgb 13.0 (12.0-16.0) g/dL Hct 39.7 (36.0-46.0) % MCV 93.9 (80.0-98.0) fL MCH 30.7 (27.0-32.0) pg MCHC 32.7 (31.0-37.0) g/dL RDW Std Deviation 50.8 (28.0-62.0) fl RDW Coeff of Payam 15 (11.0-15.0) % Plt Count 236 (150-400) K/uL MPV 11.90 (7.40-12.00) fL Neut % (Auto) 56.9 (48.0-80.0) % Lymph % (Auto) 31.8 (16.0-40.0) % [place] % (Auto) 9.1 (0.0-15.0) % Eos % (Auto) 1.8 (0.0-7.0) % Baso % (Auto) 0.4 (0.0-1.5) % Neut # (Auto) 4.2 (1.4-5.7) K/uL Lymph # (Auto) 2.4 (0.6-2.4) K/uL [place] # (Auto) 0.7 (0.0-0.8) K/uL Eos # (Auto) 0.1 (0.0-0.7) K/uL Baso # (Auto) 0.0 (0.0-0.1) K/uL Nucleated RBC % 0.0 /100WBC Nucleated RBCs # 0 K/uL Sodium 141 (136-145) mmol/L Potassium 3.6 (3.5-5.1) mmol/L Chloride 106 (98-107) mmol/L Carbon Dioxide 28.0 (21.0-32.0) mmol/L BUN 9 (7.0-18.0) mg/dL Creatinine 0.8 (0.6-1.0) mg/dL Est Cr Clr Drug Dosing 66.43 mL/min Estimated GFR (MDRD) > 60.0 ml/min Glucose 94 (74-106) mg/dL Calcium 8.4 L (8.5-10.1) mg/dL Total Bilirubin 0.3 (0.2-1.0) mg/dL AST 11 L (15-37) IU/L ALT 16 (14-63) IU/L Alkaline Phosphatase 79 (46-116) U/L Total Protein 6.0 L (6.4-8.2) g/dL Albumin 2.6 L (3.4-5.0) g/dL Globulin 3.4 (2.6-4.0) g/dL Albumin/Globulin Ratio 0.8 L (0.9-1.6) Raghav Results Last 24 Hours: Microbiology 01/14/21 15:25 Urine Culture - Final Urine, Catheterized No Growth Med Orders - Current: Current Medications Docusate Sodium (Docusate Sodium 100 Mg Cap) 100 mg PO BID [facility] Last Admin: 01/16/21 08:49 Dose: 100 mg Documented by: Heparin Sodium (Porcine) (Heparin Sodium 5,000 Units/Ml Vial) 5,000 units SUBCUT Q8H [facility] Last Admin: 01/16/21 03:50 Dose: 5,000 units Documented by: Ceftriaxone Sodium/Dextrose 1 (gm/ Premix) 50 mls @ 100 mls/hr IV Q24H [facility] Last Admin: 01/15/21 18:05 Dose: 100 mls/hr Documented by: Pantoprazole Sodium 40 mg/ (Sodium Chloride) 10 mls @ 300 mls/hr IV Q24H [facility] Last Admin: 01/15/21 18:01 Dose: 300 mls/hr Documented by: Lisinopril (Lisinopril 10 Mg Tab) 10 mg PO DAILY [facility] Last Admin: 01/16/21 08:49 Dose: 10 mg Documented by: Magnesium Hydroxide (Magnesium Hydroxide 400 Mg/5 Ml Susp 30 Ml Cup) 30 ml PO Q6H PRN PRN Reason: Constipation Last Admin: 01/15/21 11:48 Dose: 30 ml Documented by: Nystatin (Nystatin Topical Powder 15 Gm Bottle) 1 gm TOP QID PRN PRN Reason: redness Last Admin: 01/15/21 23:41 Dose: 1 applic Documented by: Ondansetron HCl (Ondansetron 4 Mg Tab.Dis) 4 mg PO Q4H PRN PRN Reason: nausea, able to take PO Discontinued Medications Bisacodyl (Bisacodyl 10 Mg Supp) 10 mg RECTAL ONETIME ONE Stop: 01/15/21 09:16 Last Admin: 01/15/21 09:29 Dose: 10 mg Documented by: Sodium Chloride (Normal Saline) 1,000 mls @ 500 mls/hr IV BOLUS ONE Stop: 01/14/21 16:13 Last Admin: 01/14/21 14:33 Dose: 500 mls/hr Documented by: Pantoprazole Sodium 80 mg/ (Sodium Chloride) 20 mls @ 420 mls/hr IVPUSH ONETIME ONE Stop: 01/14/21 14:18 Last Admin: 01/14/21 14:37 Dose: 420 mls/hr Documented by: Ceftriaxone Sodium/Dextrose 1 (gm/ Premix) 50 mls @ 100 mls/hr IV ONETIME ONE Stop: 01/14/21 16:20 Last Admin: 01/14/21 17:16 Dose: 100 mls/hr Documented by: Sodium Chloride (Normal Saline) 1,000 mls @ 75 mls/hr IV CONTINUOUS ONE Stop: 01/15/21 08:24 Last Admin: 01/14/21 20:00 Dose: 75 mls/hr Documented by: Pantoprazole Sodium 40 mg/ (Sodium Chloride) 10 mls @ 300 mls/hr IV Q24H [facility] Iopamidol (Iopamidol 755 Mg/Ml 100 Ml Bottle) 100 ml IVPUSH ONETIME ONE Stop: 01/14/21 16:14 Last Admin: 01/14/21 16:13 Dose: 100 ml Documented by: Ondansetron HCl (Ondansetron 4 Mg/2 Ml Sdv) 4 mg IVPUSH ONETIME ONE Stop: 01/14/21 14:16 Last Admin: 01/14/21 14:33 Dose: 4 mg Documented by: - Exam General: Alert, Oriented Lungs: Clear to Auscultation Cardiovascular: Regular Rate, Regular Rhythm GI/Abdominal Exam: Normal Bowel Sounds, Soft, Non-Tender Extremities: Normal Inspection, Normal Range of Motion - Patient Data Lab Results Last 24 hrs: Laboratory Results - last 24 hr 01/16/21 01/16/21 Range/Units 06:15 06:15 WBC 7.40 (4.0-11.0) K/uL RBC 4.23 L (4.30-5.90) M/uL Hgb 13.0 (12.0-16.0) g/dL Hct 39.7 (36.0-46.0) % MCV 93.9 (80.0-98.0) fL MCH 30.7 (27.0-32.0) pg MCHC 32.7 (31.0-37.0) g/dL RDW Std Deviation 50.8 (28.0-62.0) fl RDW Coeff of Payam 15 (11.0-15.0) % Plt Count 236 (150-400) K/uL MPV 11.90 (7.40-12.00) fL Neut % (Auto) 56.9 (48.0-80.0) % Lymph % (Auto) 31.8 (16.0-40.0) % [place] % (Auto) 9.1 (0.0-15.0) % Eos % (Auto) 1.8 (0.0-7.0) % Baso % (Auto) 0.4 (0.0-1.5) % Neut # (Auto) 4.2 (1.4-5.7) K/uL Lymph # (Auto) 2.4 (0.6-2.4) K/uL [place] # (Auto) 0.7 (0.0-0.8) K/uL Eos # (Auto) 0.1 (0.0-0.7) K/uL Baso # (Auto) 0.0 (0.0-0.1) K/uL Nucleated RBC % 0.0 /100WBC Nucleated RBCs # 0 K/uL Sodium 141 (136-145) mmol/L Potassium 3.6 (3.5-5.1) mmol/L Chloride 106 (98-107) mmol/L Carbon Dioxide 28.0 (21.0-32.0) mmol/L BUN 9 (7.0-18.0) mg/dL Creatinine 0.8 (0.6-1.0) mg/dL Est Cr Clr Drug Dosing 66.43 mL/min Estimated GFR (MDRD) > 60.0 ml/min Glucose 94 (74-106) mg/dL Calcium 8.4 L (8.5-10.1) mg/dL Total Bilirubin 0.3 (0.2-1.0) mg/dL AST 11 L (15-37) IU/L ALT 16 (14-63) IU/L Alkaline Phosphatase 79 (46-116) U/L Total Protein 6.0 L (6.4-8.2) g/dL Albumin 2.6 L (3.4-5.0) g/dL Globulin 3.4 (2.6-4.0) g/dL Albumin/Globulin Ratio 0.8 L (0.9-1.6) Result Diagrams: 01/16/21 06:15 01/16/21 06:15 Raghav Results Last 24 hrs: Microbiology 01/14/21 15:25 Urine Culture - Final Urine, Catheterized No Growth Sepsis Event Note - Evaluation Sepsis Screening Result: No Definite Risk - Focused Exam Vital Signs: Vital Signs Temp Pulse Resp BP BP Pulse Ox 01/16/21 08:49 125/53 L 01/16/21 08:07 36.1 C 70 16 125/53 L 94 L 01/16/21 03:45 36.4 C 66 15 118/56 L 94 L 01/15/21 23:40 35.9 C L 66 19 123/62 94 L - Problem List & Annotations (1) Constipation SNOMED Code(s): 84078737 Code(s): K59.00 - CONSTIPATION, UNSPECIFIED Status: Acute Current Visit: Yes (2) Dehydration SNOMED Code(s): 14820471 Code(s): E86.0 - DEHYDRATION Status: Acute Current Visit: Yes (3) Intractable vomiting SNOMED Code(s): 257273804 Code(s): R11.10 - VOMITING, UNSPECIFIED Status: Acute Current Visit: Yes Qualifiers: Vomiting type: unspecified Nausea presence: with nausea Qualified Code(s): R11.2 - Nausea with vomiting, unspecified (4) Urinary tract infection SNOMED Code(s): 22403794 Code(s): N39.0 - URINARY TRACT INFECTION, SITE NOT SPECIFIED Status: Acute Current Visit: Yes Qualifiers: Urinary tract infection type: acute cystitis Hematuria presence: without hematuria Qualified Code(s): N30.00 - Acute cystitis without hematuria - Problem List Review Problem List Initiated/Reviewed/Updated: Yes - My Orders Last 24 Hours: My Active Orders 01/15/21 22:30 Nystatin [Nystop] 1 gm TOP QID PRN 01/16/21 09:26 PT Evaluation and Treatment [CONS] Routine 01/16/21 Lunch Soft Diet [DIET] - Plan Plan:: Assessment: 1. Intractable nausea and vomiting in the setting of UTI/constipation 2. Urinary tract infection 3. Constipation 4. Past medical history: Breast cancer status postmastectomy, coronary artery disease status post coronary artery placement not on anticoagulation, daily tobacco abuse Plan 1. Intractable nausea/vomiting: much improved; no episodes of emesis since last night continue to monitor. CT abdomen otherwise did not show any other acute processes. 2. UTI: dc antibiotics, culture is negative 3. Constipation: Colace BID scheduled for now ; stop IVF, eating and drinking well Zofran ordered for N/Vomiting; no emesis episodes since 24 hours cont milk of mag as needed, consider fleet enema if no adequate response 4. PMH:pt unsure if/why she is on clonidine; BP under control as of this AM. will consider restarting if/when BP becomes higher. Continue Lisinopril pt is a [facility] patient; can consider discharge on Sunday if improving; switch to inpatient status,
[2021-01-16] MEDS: Acetaminophen 500 MG Tab PO PRN (10:32)
[2021-01-16] MEDS: Magnesium Hydroxide 400 MG/5 ML Susp 30 ML Cup PO PRN (10:33)
[2021-01-16] MEDS: Pantoprazole 40 MG in Sodium Chloride 0.9% 10 ML IV SCH (18:00)
[2021-01-17 06:30] LABS: BLOOD UREA NITROGEN,BUN 10 mg/dL (7.0-18.0); CARBON DIOXIDE,CO2 28.8 mmol/L (21.0-32.0); CHLORIDE,CL 106 mmol/L (98-107); GLUCOSE RANDOM 108 mg/dL (74-106); POTASSIUM,K 4.1 mmol/L (3.5-5.1); SODIUM,NA 141 mmol/L (136-145)
[2021-01-17] MEDS: Heparin Sodium 5,000 Units/ML Vial SUBCUT SCH ×3 (08:14→15:40)
[2021-01-17] MEDS: Lisinopril 10 MG Tab PO SCH (08:29)
[2021-01-17] MEDS: Docusate Sodium 100 MG Cap PO SCH ×2 (08:29→20:00)
--- NOTE | 2021-01-17 11:14 | PCM.PN ---
<Brianne Garcia - Last Filed: 01/17/21 13:49> - General Info Date of Service: 01/17/21 Subjective Update: Bedside: endorses some BM but not completely cleaned out ; feels fatigued but in no acute distress - Review of Systems General: Reports: No Symptoms HEENT: Reports: No Symptoms Pulmonary: Reports: No Symptoms Cardiovascular: Reports: No Symptoms Gastrointestinal: Reports: Constipation. Denies: Decreased Appetite Genitourinary: Reports: Burning Musculoskeletal: Reports: No Symptoms Skin: Reports: No Symptoms Neurological: Reports: No Symptoms Psychiatric: Reports: No Symptoms - Patient Data Vitals - Most Recent: Last Vital Signs Temp 97.2 F 01/17/21 07:40 Pulse 65 01/17/21 07:40 Resp 17 01/17/21 07:40 BP 142/67 H 01/17/21 08:29 Pulse Ox 97 01/17/21 07:40 Weight - Most Recent: 68.039 kg I&O - Last 24 Hours: Intake & Output 01/16/21 01/17/21 01/17/21 22:59 06:59 14:59 Intake Total 700 500 Output Total 600 Balance 700 -100 Lab Results Last 24 Hours: Laboratory Results - last 24 hr 01/17/21 01/17/21 Range/Units 05:55 05:55 WBC 7.53 (4.0-11.0) K/uL RBC 4.28 L (4.30-5.90) M/uL Hgb 13.0 (12.0-16.0) g/dL Hct 39.8 (36.0-46.0) % MCV 93.0 (80.0-98.0) fL MCH 30.4 (27.0-32.0) pg MCHC 32.7 (31.0-37.0) g/dL RDW Std Deviation 50.3 (28.0-62.0) fl RDW Coeff of Payam 15 (11.0-15.0) % Plt Count 220 (150-400) K/uL MPV 11.70 (7.40-12.00) fL Neut % (Auto) 58.0 (48.0-80.0) % Lymph % (Auto) 30.5 (16.0-40.0) % [place] % (Auto) 8.8 (0.0-15.0) % Eos % (Auto) 2.3 (0.0-7.0) % Baso % (Auto) 0.4 (0.0-1.5) % Neut # (Auto) 4.4 (1.4-5.7) K/uL Lymph # (Auto) 2.3 (0.6-2.4) K/uL [place] # (Auto) 0.7 (0.0-0.8) K/uL Eos # (Auto) 0.2 (0.0-0.7) K/uL Baso # (Auto) 0.0 (0.0-0.1) K/uL Nucleated RBC % 0.0 /100WBC Nucleated RBCs # 0 K/uL Sodium 141 (136-145) mmol/L Potassium 4.1 (3.5-5.1) mmol/L Chloride 106 (98-107) mmol/L Carbon Dioxide 28.8 (21.0-32.0) mmol/L BUN 10 (7.0-18.0) mg/dL Creatinine 0.8 (0.6-1.0) mg/dL Est Cr Clr Drug Dosing 66.43 mL/min Estimated GFR (MDRD) > 60.0 ml/min Glucose 108 H (74-106) mg/dL Calcium 8.2 L (8.5-10.1) mg/dL Total Bilirubin 0.2 (0.2-1.0) mg/dL AST 14 L (15-37) IU/L ALT 9 L (14-63) IU/L Alkaline Phosphatase 79 (46-116) U/L Total Protein 6.1 L (6.4-8.2) g/dL Albumin 2.6 L (3.4-5.0) g/dL Globulin 3.5 (2.6-4.0) g/dL Albumin/Globulin Ratio 0.7 L (0.9-1.6) Raghav Results Last 24 Hours: Microbiology 01/14/21 15:25 Urine Culture - Final Urine, Catheterized No Growth Med Orders - Current: Current Medications Acetaminophen (Acetaminophen 500 Mg Tab) 500 mg PO Q4H PRN PRN Reason: Pain Last Admin: 01/16/21 10:32 Dose: 500 mg Documented by: Docusate Sodium (Docusate Sodium 100 Mg Cap) 100 mg PO BID [facility] Last Admin: 01/17/21 08:29 Dose: 100 mg Documented by: Heparin Sodium (Porcine) (Heparin Sodium 5,000 Units/Ml Vial) 5,000 units SUBCUT Q8H [facility] Last Admin: 01/17/21 08:14 Dose: 5,000 units Documented by: Pantoprazole Sodium 40 mg/ (Sodium Chloride) 10 mls @ 300 mls/hr IV Q24H [facility] Last Admin: 01/16/21 18:00 Dose: 300 mls/hr Documented by: Lisinopril (Lisinopril 10 Mg Tab) 10 mg PO DAILY [facility] Last Admin: 01/17/21 08:29 Dose: 10 mg Documented by: Magnesium Hydroxide (Magnesium Hydroxide 400 Mg/5 Ml Susp 30 Ml Cup) 30 ml PO Q6H PRN PRN Reason: Constipation Last Admin: 01/16/21 10:33 Dose: 30 ml Documented by: Nystatin (Nystatin Topical Powder 15 Gm Bottle) 1 gm TOP QID PRN PRN Reason: redness Last Admin: 01/15/21 23:41 Dose: 1 applic Documented by: Ondansetron HCl (Ondansetron 4 Mg Tab.Dis) 4 mg PO Q4H PRN PRN Reason: nausea, able to take PO Discontinued Medications Bisacodyl (Bisacodyl 10 Mg Supp) 10 mg RECTAL ONETIME ONE Stop: 01/15/21 09:16 Last Admin: 01/15/21 09:29 Dose: 10 mg Documented by: Heparin Sodium (Porcine) (Heparin Sodium 5,000 Units/Ml Vial) 5,000 units SUBCUT Q8H [facility] Last Admin: 01/17/21 09:26 Dose: Not Given Documented by: Sodium Chloride (Normal Saline) 1,000 mls @ 500 mls/hr IV BOLUS ONE Stop: 01/14/21 16:13 Last Admin: 01/14/21 14:33 Dose: 500 mls/hr Documented by: Pantoprazole Sodium 80 mg/ (Sodium Chloride) 20 mls @ 420 mls/hr IVPUSH ONETIME ONE Stop: 01/14/21 14:18 Last Admin: 01/14/21 14:37 Dose: 420 mls/hr Documented by: Ceftriaxone Sodium/Dextrose 1 (gm/ Premix) 50 mls @ 100 mls/hr IV ONETIME ONE Stop: 01/14/21 16:20 Last Admin: 01/14/21 17:16 Dose: 100 mls/hr Documented by: Ceftriaxone Sodium/Dextrose 1 (gm/ Premix) 50 mls @ 100 mls/hr IV Q24H [facility] Last Admin: 01/15/21 18:05 Dose: 100 mls/hr Documented by: Sodium Chloride (Normal Saline) 1,000 mls @ 75 mls/hr IV CONTINUOUS ONE Stop: 01/15/21 08:24 Last Admin: 01/14/21 20:00 Dose: 75 mls/hr Documented by: Pantoprazole Sodium 40 mg/ (Sodium Chloride) 10 mls @ 300 mls/hr IV Q24H [facility] Iopamidol (Iopamidol 755 Mg/Ml 100 Ml Bottle) 100 ml IVPUSH ONETIME ONE Stop: 01/14/21 16:14 Last Admin: 01/14/21 16:13 Dose: 100 ml Documented by: Ondansetron HCl (Ondansetron 4 Mg/2 Ml Sdv) 4 mg IVPUSH ONETIME ONE Stop: 01/14/21 14:16 Last Admin: 01/14/21 14:33 Dose: 4 mg Documented by: - Exam General: Alert, Oriented Lungs: Clear to Auscultation, Normal Respiratory Effort Cardiovascular: Regular Rate, Regular Rhythm GI/Abdominal Exam: Soft, Non-Tender Extremities: Normal Inspection Neurological: No New Focal Deficit Psy/Mental Status: Alert, Normal Affect, Normal Mood - Patient Data Lab Results Last 24 hrs: Laboratory Results - last 24 hr 01/17/21 01/17/21 Range/Units 05:55 05:55 WBC 7.53 (4.0-11.0) K/uL RBC 4.28 L (4.30-5.90) M/uL Hgb 13.0 (12.0-16.0) g/dL Hct 39.8 (36.0-46.0) % MCV 93.0 (80.0-98.0) fL MCH 30.4 (27.0-32.0) pg MCHC 32.7 (31.0-37.0) g/dL RDW Std Deviation 50.3 (28.0-62.0) fl RDW Coeff of Payam 15 (11.0-15.0) % Plt Count 220 (150-400) K/uL MPV 11.70 (7.40-12.00) fL Neut % (Auto) 58.0 (48.0-80.0) % Lymph % (Auto) 30.5 (16.0-40.0) % [place] % (Auto) 8.8 (0.0-15.0) % Eos % (Auto) 2.3 (0.0-7.0) % Baso % (Auto) 0.4 (0.0-1.5) % Neut # (Auto) 4.4 (1.4-5.7) K/uL Lymph # (Auto) 2.3 (0.6-2.4) K/uL [place] # (Auto) 0.7 (0.0-0.8) K/uL Eos # (Auto) 0.2 (0.0-0.7) K/uL Baso # (Auto) 0.0 (0.0-0.1) K/uL Nucleated RBC % 0.0 /100WBC Nucleated RBCs # 0 K/uL Sodium 141 (136-145) mmol/L Potassium 4.1 (3.5-5.1) mmol/L Chloride 106 (98-107) mmol/L Carbon Dioxide 28.8 (21.0-32.0) mmol/L BUN 10 (7.0-18.0) mg/dL Creatinine 0.8 (0.6-1.0) mg/dL Est Cr Clr Drug Dosing 66.43 mL/min Estimated GFR (MDRD) > 60.0 ml/min Glucose 108 H (74-106) mg/dL Calcium 8.2 L (8.5-10.1) mg/dL Total Bilirubin 0.2 (0.2-1.0) mg/dL AST 14 L (15-37) IU/L ALT 9 L (14-63) IU/L Alkaline Phosphatase 79 (46-116) U/L Total Protein 6.1 L (6.4-8.2) g/dL Albumin 2.6 L (3.4-5.0) g/dL Globulin 3.5 (2.6-4.0) g/dL Albumin/Globulin Ratio 0.7 L (0.9-1.6) Result Diagrams: 01/17/21 05:55 01/17/21 05:55 Raghav Results Last 24 hrs: Microbiology 01/14/21 15:25 Urine Culture - Final Urine, Catheterized No Growth Sepsis Event Note - Evaluation Sepsis Screening Result: No Definite Risk - Focused Exam Vital Signs: Vital Signs Temp Pulse Resp BP BP Pulse Ox 01/17/21 08:29 142/67 H 01/17/21 07:40 97.2 F 65 17 142/67 H 97 01/17/21 04:00 98.7 F 75 18 112/65 94 L - Problem List & Annotations (1) Constipation SNOMED Code(s): 76327175 Code(s): K59.00 - CONSTIPATION, UNSPECIFIED Status: Acute Current Visit: Yes (2) Urinary tract infection SNOMED Code(s): 82640817 Code(s): N39.0 - URINARY TRACT INFECTION, SITE NOT SPECIFIED Status: Acute Current Visit: Yes Qualifiers: Urinary tract infection type: acute cystitis Hematuria presence: without hematuria Qualified Code(s): N30.00 - Acute cystitis without hematuria (3) Intractable vomiting SNOMED Code(s): 900810599 Code(s): R11.10 - VOMITING, UNSPECIFIED Status: Acute Current Visit: Yes Qualifiers: Vomiting type: unspecified Nausea presence: with nausea Qualified Code(s ): R11.2 - Nausea with vomiting, unspecified (4) Dehydration SNOMED Code(s): 37646072 Code(s): E86.0 - DEHYDRATION Status: Acute Current Visit: Yes - Problem List Review Problem List Initiated/Reviewed/Updated: Yes - My Orders Last 24 Hours: My Active Orders 01/17/21 08:15 Heparin Sodium 5,000 units SUBCUT Q8H - Plan Plan:: Assessment: 1. Intractable nausea and vomiting in the setting of UTI/constipation 2. Urinary tract infection:improved 3. Constipation 4. Past medical history: Breast cancer status postmastectomy, coronary artery disease status post coronary artery placement not on anticoagulation, daily tobacco abuse Plan 1. Intractable nausea/vomiting: much improved; no episodes of emesis since 1st night; improving CT abdomen otherwise did not show any other acute processes. 2. UTI: dc antibiotics, culture is negative 3. Constipation: Colace BID scheduled for now ; stop IVF, eating and drinking well Zofran ordered for N/Vomiting; no emesis episodes since 24 hours cont milk of mag scheduled today to encourage BM 4. PMH:pt unsure if/why she is on clonidine; BP under control as of this AM. will consider restarting if/when BP becomes higher. Continue Lisinopril pt is a [facility] patient; anticipate discharge in 1-2 days <AdamAdarsh - Last Filed: 01/17/21 20:50> - Patient Data Vitals - Most Recent: Last Vital Signs Temp 36.3 C 01/17/21 19:38 Pulse 70 01/17/21 19:38 Resp 16 01/17/21 19:38 BP 144/64 H 01/17/21 19:38 Pulse Ox 98 01/17/21 19:38 I&O - Last 24 Hours: Intake & Output 01/17/21 01/17/21 01/17/21 06:59 14:59 22:59 Intake Total 500 750 Output Total 600 350 Balance -100 400 Lab Results Last 24 Hours: Laboratory Results - last 24 hr 01/17/21 01/17/21 01/17/21 Range/Units 05:32 05:55 05:55 WBC 7.53 (4.0-11.0) K/uL RBC 4.28 L (4.30-5.90) M/uL Hgb 13.0 (12.0-16.0) g/dL Hct 39.8 (36.0-46.0) % MCV 93.0 (80.0-98.0) fL MCH 30.4 (27.0-32.0) pg MCHC 32.7 (31.0-37.0) g/dL RDW Std Deviation 50.3 (28.0-62.0) fl RDW Coeff of Payam 15 (11.0-15.0) % Plt Count 220 (150-400) K/uL MPV 11.70 (7.40-12.00) fL Neut % (Auto) 58.0 (48.0-80.0) % Lymph % (Auto) 30.5 (16.0-40.0) % [place] % (Auto) 8.8 (0.0-15.0) % Eos % (Auto) 2.3 (0.0-7.0) % Baso % (Auto) 0.4 (0.0-1.5) % Neut # (Auto) 4.4 (1.4-5.7) K/uL Lymph # (Auto) 2.3 (0.6-2.4) K/uL [place] # (Auto) 0.7 (0.0-0.8) K/uL Eos # (Auto) 0.2 (0.0-0.7) K/uL Baso # (Auto) 0.0 (0.0-0.1) K/uL Nucleated RBC % 0.0 /100WBC Nucleated RBCs # 0 K/uL Sodium 141 (136-145) mmol/L Potassium 4.1 (3.5-5.1) mmol/L Chloride 106 (98-107) mmol/L Carbon Dioxide 28.8 (21.0-32.0) mmol/L BUN 10 (7.0-18.0) mg/dL Creatinine 0.8 (0.6-1.0) mg/dL Est Cr Clr Drug Dosing 66.43 mL/min Estimated GFR (MDRD) > 60.0 ml/min Glucose 108 H (74-106) mg/dL POC Glucose 95 (70-99) mg/dL Calcium 8.2 L (8.5-10.1) mg/dL Total Bilirubin 0.2 (0.2-1.0) mg/dL AST 14 L (15-37) IU/L ALT 9 L (14-63) IU/L Alkaline Phosphatase 79 (46-116) U/L Total Protein 6.1 L (6.4-8.2) g/dL Albumin 2.6 L (3.4-5.0) g/dL Globulin 3.5 (2.6-4.0) g/dL Albumin/Globulin Ratio 0.7 L (0.9-1.6) Med Orders - Current: Current Medications Acetaminophen (Acetaminophen 500 Mg Tab) 500 mg PO Q4H PRN PRN Reason: Pain Last Admin: 01/17/21 15:39 Dose: 500 mg Documented by: Docusate Sodium (Docusate Sodium 100 Mg Cap) 100 mg PO BID [facility] Last Admin: 01/17/21 20:00 Dose: 100 mg Documented by: Heparin Sodium (Porcine) (Heparin Sodium 5,000 Units/Ml Vial) 5,000 units SUBCUT Q8H [facility] Last Admin: 01/17/21 15:40 Dose: 5,000 units Documented by: Pantoprazole Sodium 40 mg/ (Sodium Chloride) 10 mls @ 300 mls/hr IV Q24H [facility] Last Admin: 01/17/21 18:02 Dose: 300 mls/hr Documented by: Lisinopril (Lisinopril 10 Mg Tab) 10 mg PO DAILY [facility] Last Admin: 01/17/21 08:29 Dose: 10 mg Documented by: Magnesium Hydroxide (Magnesium Hydroxide 400 Mg/5 Ml Susp 30 Ml Cup) 30 ml PO Q6H [facility] Last Admin: 01/17/21 19:27 Dose: 30 ml Documented by: Nystatin (Nystatin Topical Powder 15 Gm Bottle) 1 gm TOP QID PRN PRN Reason: redness Last Admin: 01/15/21 23:41 Dose: 1 applic Documented by: Ondansetron HCl (Ondansetron 4 Mg Tab.Dis) 4 mg PO Q4H PRN PRN Reason: nausea, able to take PO Discontinued Medications Bisacodyl (Bisacodyl 10 Mg Supp) 10 mg RECTAL ONETIME ONE Stop: 01/15/21 09:16 Last Admin: 01/15/21 09:29 Dose: 10 mg Documented by: Heparin Sodium (Porcine) (Heparin Sodium 5,000 Units/Ml Vial) 5,000 units SUBCUT Q8H [facility] Last Admin: 01/17/21 09:26 Dose: Not Given Documented by: Sodium Chloride (Normal Saline) 1,000 mls @ 500 mls/hr IV BOLUS ONE Stop: 01/14/21 16:13 Last Admin: 01/14/21 14:33 Dose: 500 mls/hr Documented by: Pantoprazole Sodium 80 mg/ (Sodium Chloride) 20 mls @ 420 mls/hr IVPUSH ONETIME ONE Stop: 01/14/21 14:18 Last Admin: 01/14/21 14:37 Dose: 420 mls/hr Documented by: Ceftriaxone Sodium/Dextrose 1 (gm/ Premix) 50 mls @ 100 mls/hr IV ONETIME ONE Stop: 01/14/21 16:20 Last Admin: 01/14/21 17:16 Dose: 100 mls/hr Documented by: Ceftriaxone Sodium/Dextrose 1 (gm/ Premix) 50 mls @ 100 mls/hr IV Q24H [facility] Last Admin: 01/15/21 18:05 Dose: 100 mls/hr Documented by: Sodium Chloride (Normal Saline) 1,000 mls @ 75 mls/hr IV CONTINUOUS ONE Stop: 01/15/21 08:24 Last Admin: 01/14/21 20:00 Dose: 75 mls/hr Documented by: Pantoprazole Sodium 40 mg/ (Sodium Chloride) 10 mls @ 300 mls/hr IV Q24H [facility] Iopamidol (Iopamidol 755 Mg/Ml 100 Ml Bottle) 100 ml IVPUSH ONETIME ONE Stop: 01/14/21 16:14 Last Admin: 01/14/21 16:13 Dose: 100 ml Documented by: Magnesium Hydroxide (Magnesium Hydroxide 400 Mg/5 Ml Susp 30 Ml Cup) 30 ml PO Q6H PRN PRN Reason: Constipation Last Admin: 01/17/21 14:01 Dose: 30 ml Documented by: Ondansetron HCl (Ondansetron 4 Mg/2 Ml Sdv) 4 mg IVPUSH ONETIME ONE Stop: 01/14/21 14:16 Last Admin: 01/14/21 14:33 Dose: 4 mg Documented by: - Patient Data Lab Results Last 24 hrs: Laboratory Results - last 24 hr 01/17/21 01/17/21 01/17/21 Range/Units 05:32 05:55 05:55 WBC 7.53 (4.0-11.0) K/uL RBC 4.28 L (4.30-5.90) M/uL Hgb 13.0 (12.0-16.0) g/dL Hct 39.8 (36.0-46.0) % MCV 93.0 (80.0-98.0) fL MCH 30.4 (27.0-32.0) pg MCHC 32.7 (31.0-37.0) g/dL RDW Std Deviation 50.3 (28.0-62.0) fl RDW Coeff of Payam 15 (11.0-15.0) % Plt Count 220 (150-400) K/uL MPV 11.70 (7.40-12.00) fL Neut % (Auto) 58.0 (48.0-80.0) % Lymph % (Auto) 30.5 (16.0-40.0) % [place] % (Auto) 8.8 (0.0-15.0) % Eos % (Auto) 2.3 (0.0-7.0) % Baso % (Auto) 0.4 (0.0-1.5) % Neut # (Auto) 4.4 (1.4-5.7) K/uL Lymph # (Auto) 2.3 (0.6-2.4) K/uL [place] # (Auto) 0.7 (0.0-0.8) K/uL Eos # (Auto) 0.2 (0.0-0.7) K/uL Baso # (Auto) 0.0 (0.0-0.1) K/uL Nucleated RBC % 0.0 /100WBC Nucleated RBCs # 0 K/uL Sodium 141 (136-145) mmol/L Potassium 4.1 (3.5-5.1) mmol/L Chloride 106 (98-107) mmol/L Carbon Dioxide 28.8 (21.0-32.0) mmol/L BUN 10 (7.0-18.0) mg/dL Creatinine 0.8 (0.6-1.0) mg/dL Est Cr Clr Drug Dosing 66.43 mL/min Estimated GFR (MDRD) > 60.0 ml/min Glucose 108 H (74-106) mg/dL POC Glucose 95 (70-99) mg/dL Calcium 8.2 L (8.5-10.1) mg/dL Total Bilirubin 0.2 (0.2-1.0) mg/dL AST 14 L (15-37) IU/L ALT 9 L (14-63) IU/L Alkaline Phosphatase 79 (46-116) U/L Total Protein 6.1 L (6.4-8.2) g/dL Albumin 2.6 L (3.4-5.0) g/dL Globulin 3.5 (2.6-4.0) g/dL Albumin/Globulin Ratio 0.7 L (0.9-1.6) Result Diagrams: 01/17/21 05:55 01/17/21 05:55 Sepsis Event Note - Focused Exam Vital Signs: Vital Signs Temp Pulse Resp BP Pulse Ox 01/17/21 19:38 36.3 C 70 16 144/64 H 98 01/17/21 15:38 36.7 C 71 17 148/68 H 96 01/17/21 11:00 36.9 C 61 18 159/74 H 98 - Problem List & Annotations (1) Constipation SNOMED Code(s): 15440241 Code(s): K59.00 - CONSTIPATION, UNSPECIFIED Status: Acute Current Visit: Yes (2) Dehydration SNOMED Code(s): 71887316 Code(s): E86.0 - DEHYDRATION Status: Acute Current Visit: Yes (3) Intractable vomiting SNOMED Code(s): 495853869 Code(s): R11.10 - VOMITING, UNSPECIFIED Status: Acute Current Visit: Yes Qualifiers: Vomiting type: unspecified Nausea presence: with nausea Qualified Code( s): R11.2 - Nausea with vomiting, unspecified (4) Urinary tract infection SNOMED Code(s): 26695909 Code(s): N39.0 - URINARY TRACT INFECTION, SITE NOT SPECIFIED Status: Acute Current Visit: Yes Qualifiers: Urinary tract infection type: acute cystitis Hematuria presence: without hematuria Qualified Code(s): N30.00 - Acute cystitis without hematuria - Plan Plan:: I have seen and evaluated the patient. I have discussed findings and treatment plan with resident. I agree with the assessment and plan in the following note.
[2021-01-17] MEDS: Magnesium Hydroxide 400 MG/5 ML Susp 30 ML Cup PO PRN (14:01)
[2021-01-17] MEDS: Acetaminophen 500 MG Tab PO PRN (15:39)
[2021-01-17] MEDS: Pantoprazole 40 MG in Sodium Chloride 0.9% 10 ML IV SCH (18:02)
[2021-01-17] MEDS: Magnesium Hydroxide 400 MG/5 ML Susp 30 ML Cup PO SCH (19:27)
[2021-01-18] MEDS: Magnesium Hydroxide 400 MG/5 ML Susp 30 ML Cup PO SCH ×3 (00:39→12:51)
[2021-01-18] MEDS: Heparin Sodium 5,000 Units/ML Vial SUBCUT SCH ×2 (00:40→07:58)
[2021-01-18 05:59] LABS: BLOOD UREA NITROGEN,BUN 10 mg/dL (7.0-18.0); CARBON DIOXIDE,CO2 27.2 mmol/L (21.0-32.0); CHLORIDE,CL 105 mmol/L (98-107); GLUCOSE RANDOM 105 mg/dL (74-106); POTASSIUM,K 3.8 mmol/L (3.5-5.1); SODIUM,NA 141 mmol/L (136-145)
[2021-01-18] MEDS: Lisinopril 10 MG Tab PO SCH (08:02)
[2021-01-18] MEDS: Docusate Sodium 100 MG Cap PO SCH (08:03)
--- NOTE | 2021-01-18 11:40 | PCM.DCSUM1 ---
<Brianne Garcia - Last Filed: 01/19/21 15:33> Discharge Summary - Hospital Course Free Text/Narrative:: . Patient is a 70-year-old female with a significant past medical history of breast cancer status post right mastectomy, coronary artery disease status post stent placement, AAA repair, daily tobacco abuse of 1 pack/day: Presented with daughter with worsening nausea/vomiting x3 to 4 days. Per daughter patient was recently discharged from a outpatient long-term facility in [place] and had traveled here arriving to [place] on Sunday was still having continuous nausea vomiting and no bowel movements x7 days. Has been seen by an outpatient provider and provided antibiotics for UTI however did not complete this antibiotic secondary to persistent nausea/vomiting. Patient also has been not eating/drinking due to initial complaint but otherwise is not having any fevers, chills, chest pain, shortness of breath, lower extremity swelling. ED course: EKG: NSR without ST elevation/depression. CMP: 1.1 creatinine with HANS. Troponin negative. Lipase negative. UA positive for leukocyte esterase and ketones. Chest x-ray negative allowing for low lung volumes. Abdominal pelvic CT suggests constipation status post cholecystectomy coronary bypass and right mastectomy Patient was given 1 L fluid, Zofran and Rocephin Hospital course: Throughout stay patient was vitally stable and did not have any significant/acute distress. Nausea/vomiting had resolved overnight secondary to use of IV Zofran. Patient was given Colace/milk of magnesia and had done a enema x1 secondary to concerns about constipation. Throughout her stay patient's constipation had improved and did have some bowel movement and was always passing flatus. Patient did not did not experience any abdominal pain/discomfort or any bloody stools. Advised to discontinue use of ondansetron as this may have been the etiology for her constiaption. Advised to increase fluid intake and. ADvised to notify provider /nursing care if not BM > 3 days and or if pain/fever develops at any point. pt understood. Urine culture came back negative and patient was discontinued off of her antibiotics. Patient was ultimately transferred to [facility] for long-term care. Discussed with patient probable need to get dentures to increase caliber of food as patient has been eating soft food for quite some time. Patient was no acute distress and was discharged in stable condition. Discharge condition: Stable Disposition: Long-term nursing care facility. - Discharge Data Discharge Date: 01/18/21 Discharge Disposition: DC/Tfer to [facility] Condition: Fair - Referral to Home Health Primary Care Physician: Rashad Snyder MD - Discharge Diagnosis/Problem(s) (1) Constipation SNOMED Code(s): 51046772 ICD Code: K59.00 - CONSTIPATION, UNSPECIFIED Status: Acute (2) Urinary tract infection SNOMED Code(s): 59729892 ICD Code: N39.0 - URINARY TRACT INFECTION, SITE NOT SPECIFIED Status: Acute Qualifiers: Urinary tract infection type: acute cystitis Hematuria presence: without hematuria Qualified Code(s): N30.00 - Acute cystitis without hematuria (3) Intractable vomiting SNOMED Code(s): 458298988 ICD Code: R11.10 - VOMITING, UNSPECIFIED Status: Acute Qualifiers: Vomiting type: unspecified Nausea presence: with nausea Qualified Code(s): R11.2 - Nausea with vomiting, unspecified (4) Dehydration SNOMED Code(s): 90711424 ICD Code: E86.0 - DEHYDRATION Status: Acute - Patient Summary/Data Consults: Consultations 01/16/21 09:26 PT Evaluation and Treatment [CONS] Routine - Patient Instructions Diet: Usual Diet as Tolerated (Soft diet ) Notify Provider of: Fever, Nausea and/or Vomiting Other/Special Instructions: Follow up with your PCP as scheduled. Discuss need for dentures with your PCP to help with eating. increase fiber intake and drink plenty of fluids. if not having a BM for 2-3 days; discuss need for Miralax to help alleviate constipation - Discharge Plan *PRESCRIPTION DRUG MONITORING PROGRAM REVIEWED*: No *COPY OF PRESCRIPTION DRUG MONITORING REPORT IN PATIENT AMARILYS: No Home Medications: Home Meds Ciprofloxacin [Ciprofloxacin HCl] 500 mg PO BID MDD 7days 01/14/21 [History] atorvaSTATin [Lipitor] 40 mg PO BEDTIME 01/14/21 [History] cloNIDine HCL [Clonidine HCl] 0.1 mg PO DAILY 01/14/21 [History] lisinopriL [Lisinopril] 10 mg PO DAILY 01/14/21 [History] Docusate Sodium [Colace] 100 mg PO BID cap 01/17/21 [Rx] Metoclopramide HCl 5 mg PO TIDAC 01/17/21 [History] Nystatin [Nystop] 1 gm TOP QID PRN bottle 01/17/21 [Rx] Omeprazole 40 mg PO ACBREAKFAST 01/17/21 [History] Magnesium Hydroxide [Milk of Magnesia] 30 ml PO Q6H PRN 3 Days #1 cup 01/18/21 [Rx] Oxygen Therapy Mode: Room Air Referrals: Rashad Snyder MD [Primary Care Provider] - 01/24/21 9:45 am - Discharge Summary/Plan Comment DC Time >30 min.: No - Patient Data Vitals - Most Recent: Last Vital Signs Temp 98.1 F 01/18/21 07:44 Pulse 81 01/18/21 07:44 Resp 16 01/18/21 07:44 BP 160/70 H 01/18/21 08:02 Pulse Ox 98 01/18/21 07:44 Weight - Most Recent: 68.039 kg I&O - Last 24 hours: Intake & Output 01/17/21 01/18/21 01/18/21 22:59 06:59 14:59 Intake Total 750 600 Output Total 350 300 Balance 400 300 Lab Results - Last 24 hrs: Laboratory Results - last 24 hr 01/17/21 01/18/21 01/18/21 Range/Units 05:32 05:18 05:18 WBC 6.48 (4.0-11.0) K/uL RBC 4.34 (4.30-5.90) M/uL Hgb 13.2 (12.0-16.0) g/dL Hct 40.3 (36.0-46.0) % MCV 92.9 (80.0-98.0) fL MCH 30.4 (27.0-32.0) pg MCHC 32.8 (31.0-37.0) g/dL RDW Std Deviation 50.6 (28.0-62.0) fl RDW Coeff of Payam 15 (11.0-15.0) % Plt Count 212 (150-400) K/uL MPV 12.30 H (7.40-12.00) fL Neut % (Auto) 46.9 L (48.0-80.0) % Lymph % (Auto) 42.3 H (16.0-40.0) % Christian % (Auto) 8.3 (0.0-15.0) % Eos % (Auto) 2.2 (0.0-7.0) % Baso % (Auto) 0.3 (0.0-1.5) % Neut # (Auto) 3.0 (1.4-5.7) K/uL Lymph # (Auto) 2.7 H (0.6-2.4) K/uL Christian # (Auto) 0.5 (0.0-0.8) K/uL Eos # (Auto) 0.1 (0.0-0.7) K/uL Baso # (Auto) 0.0 (0.0-0.1) K/uL Nucleated RBC % 0.0 /100WBC Nucleated RBCs # 0 K/uL Sodium 141 (136-145) mmol/L Potassium 3.8 (3.5-5.1) mmol/L Chloride 105 (98-107) mmol/L Carbon Dioxide 27.2 (21.0-32.0) mmol/L BUN 10 (7.0-18.0) mg/dL Creatinine 0.8 (0.6-1.0) mg/dL Est Cr Clr Drug Dosing 66.43 mL/min Estimated GFR (MDRD) > 60.0 ml/min Glucose 105 (74-106) mg/dL POC Glucose 95 (70-99) mg/dL Calcium 8.6 (8.5-10.1) mg/dL SARS-CoV-2 RNA (BRITTANY) (NEGATIVE) 01/18/21 Range/Units 08:15 WBC (4.0-11.0) K/uL RBC (4.30-5.90) M/uL Hgb (12.0-16.0) g/dL Hct (36.0-46.0) % MCV (80.0-98.0) fL MCH (27.0-32.0) pg MCHC (31.0-37.0) g/dL RDW Std Deviation (28.0-62.0) fl RDW Coeff of Payam (11.0-15.0) % Plt Count (150-400) K/uL MPV (7.40-12.00) fL Neut % (Auto) (48.0-80.0) % Lymph % (Auto) (16.0-40.0) % Christian % (Auto) (0.0-15.0) % Eos % (Auto) (0.0-7.0) % Baso % (Auto) (0.0-1.5) % Neut # (Auto) (1.4-5.7) K/uL Lymph # (Auto) (0.6-2.4) K/uL Christian # (Auto) (0.0-0.8) K/uL Eos # (Auto) (0.0-0.7) K/uL Baso # (Auto) (0.0-0.1) K/uL Nucleated RBC % /100WBC Nucleated RBCs # K/uL Sodium (136-145) mmol/L Potassium (3.5-5.1) mmol/L Chloride (98-107) mmol/L Carbon Dioxide (21.0-32.0) mmol/L BUN (7.0-18.0) mg/dL Creatinine (0.6-1.0) mg/dL Est Cr Clr Drug Dosing mL/min Estimated GFR (MDRD) ml/min Glucose (74-106) mg/dL POC Glucose (70-99) mg/dL Calcium (8.5-10.1) mg/dL SARS-CoV-2 RNA (BRITTANY) NEGATIVE (NEGATIVE) Med Orders - Current: Current Medications Acetaminophen (Acetaminophen 500 Mg Tab) 500 mg PO Q4H PRN PRN Reason: Pain Last Admin: 01/17/21 15:39 Dose: 500 mg Documented by: Docusate Sodium (Docusate Sodium 100 Mg Cap) 100 mg PO BID [facility] Last Admin: 01/18/21 08:03 Dose: 100 mg Documented by: Heparin Sodium (Porcine) (Heparin Sodium 5,000 Units/Ml Vial) 5,000 units SUBCUT Q8H [facility] Last Admin: 01/18/21 07:58 Dose: 5,000 units Documented by: Pantoprazole Sodium 40 mg/ (Sodium Chloride) 10 mls @ 300 mls/hr IV Q24H [facility] Last Admin: 01/17/21 18:02 Dose: 300 mls/hr Documented by: Lisinopril (Lisinopril 10 Mg Tab) 10 mg PO DAILY [facility] Last Admin: 01/18/21 08:02 Dose: 10 mg Documented by: Magnesium Hydroxide (Magnesium Hydroxide 400 Mg/5 Ml Susp 30 Ml Cup) 30 ml PO Q6H [facility] Last Admin: 01/18/21 07:57 Dose: 30 ml Documented by: Nystatin (Nystatin Topical Powder 15 Gm Bottle) 1 gm TOP QID PRN PRN Reason: redness Last Admin: 01/15/21 23:41 Dose: 1 applic Documented by: Ondansetron HCl (Ondansetron 4 Mg Tab.Dis) 4 mg PO Q4H PRN PRN Reason: nausea, able to take PO Discontinued Medications Bisacodyl (Bisacodyl 10 Mg Supp) 10 mg RECTAL ONETIME ONE Stop: 01/15/21 09:16 Last Admin: 01/15/21 09:29 Dose: 10 mg Documented by: Heparin Sodium (Porcine) (Heparin Sodium 5,000 Units/Ml Vial) 5,000 units SUBCUT Q8H [facility] Last Admin: 01/17/21 09:26 Dose: Not Given Documented by: Sodium Chloride (Normal Saline) 1,000 mls @ 500 mls/hr IV BOLUS ONE Stop: 01/14/21 16:13 Last Admin: 01/14/21 14:33 Dose: 500 mls/hr Documented by: Pantoprazole Sodium 80 mg/ (Sodium Chloride) 20 mls @ 420 mls/hr IVPUSH ONETIME ONE Stop: 01/14/21 14:18 Last Admin: 01/14/21 14:37 Dose: 420 mls/hr Documented by: Ceftriaxone Sodium/Dextrose 1 (gm/ Premix) 50 mls @ 100 mls/hr IV ONETIME ONE Stop: 01/14/21 16:20 Last Admin: 01/14/21 17:16 Dose: 100 mls/hr Documented by: Ceftriaxone Sodium/Dextrose 1 (gm/ Premix) 50 mls @ 100 mls/hr IV Q24H [facility] Last Admin: 01/15/21 18:05 Dose: 100 mls/hr Documented by: Sodium Chloride (Normal Saline) 1,000 mls @ 75 mls/hr IV CONTINUOUS ONE Stop: 01/15/21 08:24 Last Admin: 01/14/21 20:00 Dose: 75 mls/hr Documented by: Pantoprazole Sodium 40 mg/ (Sodium Chloride) 10 mls @ 300 mls/hr IV Q24H [facility] Iopamidol (Iopamidol 755 Mg/Ml 100 Ml Bottle) 100 ml IVPUSH ONETIME ONE Stop: 01/14/21 16:14 Last Admin: 01/14/21 16:13 Dose: 100 ml Documented by: Magnesium Hydroxide (Magnesium Hydroxide 400 Mg/5 Ml Susp 30 Ml Cup) 30 ml PO Q6H PRN PRN Reason: Constipation Last Admin: 01/17/21 14:01 Dose: 30 ml Documented by: Ondansetron HCl (Ondansetron 4 Mg/2 Ml Sdv) 4 mg IVPUSH ONETIME ONE Stop: 01/14/21 14:16 Last Admin: 01/14/21 14:33 Dose: 4 mg Documented by: <Adarsh Medina - Last Filed: 01/20/21 21:38> Discharge Summary - Hospital Course Free Text/Narrative:: I have seen and evaluated the patient and agree with the residents note unless specified in my note . - Referral to Home Health Primary Care Physician: Rashad Snyder MD - Discharge Diagnosis/Problem(s) (1) Constipation SNOMED Code(s): 20602961 ICD Code: K59.00 - CONSTIPATION, UNSPECIFIED Status: Acute (2) Dehydration SNOMED Code(s): 67246765 ICD Code: E86.0 - DEHYDRATION Status: Acute (3) Intractable vomiting SNOMED Code(s): 153187974 ICD Code: R11.10 - VOMITING, UNSPECIFIED Status: Acute Qualifiers: Vomiting type: unspecified Nausea presence: with nausea Qualified Code(s): R11.2 - Nausea with vomiting, unspecified (4) Urinary tract infection SNOMED Code(s): 49760266 ICD Code: N39.0 - URINARY TRACT INFECTION, SITE NOT SPECIFIED Status: Acute Qualifiers: Urinary tract infection type: acute cystitis Hematuria presence: without hematuria Qualified Code(s): N30.00 - Acute cystitis without hematuria - Patient Summary/Data Consults: Consultations 01/16/21 09:26 PT Evaluation and Treatment [CONS] Routine - Patient Data Vitals - Most Recent: Last Vital Signs Temp 36.6 C 01/18/21 13:14 Pulse 76 01/18/21 13:14 Resp 20 01/18/21 13:14 BP 135/68 01/18/21 13:14 Pulse Ox 98 01/18/21 13:14 Med Orders - Current: Current Medications Discontinued Medications Acetaminophen (Acetaminophen 500 Mg Tab) 500 mg PO Q4H PRN PRN Reason: Pain Last Admin: 01/17/21 15:39 Dose: 500 mg Documented by: Bisacodyl (Bisacodyl 10 Mg Supp) 10 mg RECTAL ONETIME ONE Stop: 01/15/21 09:16 Last Admin: 01/15/21 09:29 Dose: 10 mg Documented by: Docusate Sodium (Docusate Sodium 100 Mg Cap) 100 mg PO BID [facility] Last Admin: 01/18/21 08:03 Dose: 100 mg Documented by: Heparin Sodium (Porcine) (Heparin Sodium 5,000 Units/Ml Vial) 5,000 units SUBCUT Q8H [facility] Last Admin: 01/17/21 09:26 Dose: Not Given Documented by: Heparin Sodium (Porcine) (Heparin Sodium 5,000 Units/Ml Vial) 5,000 units SUBCUT Q8H [facility] Last Admin: 01/18/21 07:58 Dose: 5,000 units Documented by: Sodium Chloride (Normal Saline) 1,000 mls @ 500 mls/hr IV BOLUS ONE Stop: 01/14/21 16:13 Last Admin: 01/14/21 14:33 Dose: 500 mls/hr Documented by: Pantoprazole Sodium 80 mg/ (Sodium Chloride) 20 mls @ 420 mls/hr IVPUSH ONETIME ONE Stop: 01/14/21 14:18 Last Admin: 01/14/21 14:37 Dose: 420 mls/hr Documented by: Ceftriaxone Sodium/Dextrose 1 (gm/ Premix) 50 mls @ 100 mls/hr IV ONETIME ONE Stop: 01/14/21 16:20 Last Admin: 01/14/21 17:16 Dose: 100 mls/hr Documented by: Ceftriaxone Sodium/Dextrose 1 (gm/ Premix) 50 mls @ 100 mls/hr IV Q24H [facility] Last Admin: 01/15/21 18:05 Dose: 100 mls/hr Documented by: Sodium Chloride (Normal Saline) 1,000 mls @ 75 mls/hr IV CONTINUOUS ONE Stop: 01/15/21 08:24 Last Admin: 01/14/21 20:00 Dose: 75 mls/hr Documented by: Pantoprazole Sodium 40 mg/ (Sodium Chloride) 10 mls @ 300 mls/hr IV Q24H [facility] Pantoprazole Sodium 40 mg/ (Sodium Chloride) 10 mls @ 300 mls/hr IV Q24H [facility] Last Admin: 01/17/21 18:02 Dose: 300 mls/hr Documented by: Iopamidol (Iopamidol 755 Mg/Ml 100 Ml Bottle) 100 ml IVPUSH ONETIME ONE Stop: 01/14/21 16:14 Last Admin: 01/14/21 16:13 Dose: 100 ml Documented by: Lisinopril (Lisinopril 10 Mg Tab) 10 mg PO DAILY [facility] Last Admin: 01/18/21 08:02 Dose: 10 mg Documented by: Magnesium Hydroxide (Magnesium Hydroxide 400 Mg/5 Ml Susp 30 Ml Cup) 30 ml PO Q6H PRN PRN Reason: Constipation Last Admin: 01/17/21 14:01 Dose: 30 ml Documented by: Magnesium Hydroxide (Magnesium Hydroxide 400 Mg/5 Ml Susp 30 Ml Cup) 30 ml PO Q6H [facility] Last Admin: 01/18/21 12:51 Dose: Not Given Documented by: Nystatin (Nystatin Topical Powder 15 Gm Bottle) 1 gm TOP QID PRN PRN Reason: redness Last Admin: 01/15/21 23:41 Dose: 1 applic Documented by: Ondansetron HCl (Ondansetron 4 Mg/2 Ml Sdv) 4 mg IVPUSH ONETIME ONE Stop: 01/14/21 14:16 Last Admin: 01/14/21 14:33 Dose: 4 mg Documented by: Ondansetron HCl (Ondansetron 4 Mg Tab.Dis) 4 mg PO Q4H PRN PRN Reason: nausea, able to take PO
== END 2021-01-18 13:47 | DRG 690 ==
LOC: MW.ED 13:42 → MW.MS 17:08 → UNDOADMOB 18:57 → MW.MS 18:57 → OBSVTOIN 01-15 11:46 → MW.MS 01-15 11:46
PROVIDERS: ADMIT Internal Medicine; ATTEND Internal Medicine
DX: N39.0 Urinary tract infection, site not specified (principal); N30.00 Acute cystitis without hematuria; R11.2 Nausea with vomiting, unspecified; K59.00 Constipation, unspecified; Z85.3 Personal history of malignant neoplasm of breast; Z90.11 Acquired absence of right breast and nipple; I25.10 Atherosclerotic heart disease of native coronary artery without angina pectoris; Z95.5 Presence of coronary angioplasty implant and graft; F17.210 Nicotine dependence, cigarettes, uncomplicated; Z79.899 Other long term (current) drug therapy; Z90.49 Acquired absence of other specified parts of digestive tract; Z95.1 Presence of aortocoronary bypass graft; E86.0 Dehydration; I10 Essential (primary) hypertension; Z66 Do not resuscitate; Z20.822 Contact with and (suspected) exposure to COVID-19
CPT/HCPCS: 0240U; 36415; 71045; 74177; 80048; 80053; 81001; 82947; 83690; 84484; 85025; 85610; 87086; 93005; 96361; 96365; 96375; 97162; 99285; 99284; A9270-GY; C9113; J0696; J1644; J2405; J7030; Q9967; U0002

== ENCOUNTER 2021-03-15 09:39 | Emergency (ER) | payer SELFPAY ==
[2021-03-15] MEDS ORDERED: Acetaminophen 325 MG Tab PO ONE (09:59)
--- NOTE | 2021-03-15 10:05 | EDM.PDOC ---
ED HPI GENERAL MEDICAL PROBLEM - General Chief Complaint: Back Pain or Injury Stated Complaint: FALL Time Seen by Provider: 03/15/21 09:50 Source of Information: Reports: Patient History Limitations: Reports: No Limitations - History of Present Illness INITIAL COMMENTS - FREE TEXT/NARRATIVE: Patient is a 70-year-old female presenting today from long-term for fall. Patient states she was trying to sit down in her wheelchair when she missed it and landed on her left chest. She has some pain over the left chest but also complains of back pain. Patient otherwise is breathing freely no shortness of breath fever chills or other complaints. She has no neurological planes of weakness in extremity. Patient pain is reproducible on exam of the chest. Pain is not made worse with exertion. left breast Pain Score (Numeric/FACES): 10 - Related Data Allergies Allergy/AdvReac Type Severity Reaction Status Date / Time No Known Allergies Allergy Verified 03/15/21 10:00 Home Meds: Home Meds atorvaSTATin [Lipitor] 40 mg PO BEDTIME 01/14/21 [History] cloNIDine HCL [Clonidine HCl] 0.1 mg PO BEDTIME 01/14/21 [History] lisinopriL [Lisinopril] 10 mg PO DAILY 01/14/21 [History] Metoclopramide HCl 5 mg PO TIDAC 01/17/21 [History] Omeprazole 40 mg PO ACBREAKFAST 01/17/21 [History] Magnesium Hydroxide [Milk of Magnesia] 30 ml PO Q6H PRN 3 Days #1 cup 01/18/21 [Rx] Docusate Sodium [Colace] 100 mg PO BID 03/15/21 [History] Nystatin [Nystop] 1 gm TOP Q6H PRN 03/15/21 [History] buPROPion HCL [Wellbutrin Xl] 150 mg PO DAILY 03/15/21 [History] Past Medical History Cardiovascular History: Reports: Hypertension Genitourinary History: Reports: UTI, Recurrent PULMONOLOGIST INTENSIVIST History: Reports: Endocrine/Metabolic History: Reports: Other (See Below) Other Endocrine/Metabolic History: pt states she had elevated blood sugar "a long time ago" - Past Surgical History Cardiovascular Surgical History: Reports: AAA Repair Female Surgical History: Reports: None Endocrine Surgical History: Reports: None Social & Family History - Family History Family Medical History: No Pertinent Family History - Caffeine Use Caffeine Use: Reports: Coffee, Soda ED ROS GENERAL - Review of Systems Review Of Systems: See Below Constitutional: Reports: No Symptoms HEENT: Reports: No Symptoms Respiratory: Reports: No Symptoms Cardiovascular: Reports: No Symptoms Endocrine: Reports: No Symptoms GI/Abdominal: Reports: No Symptoms : Reports: No Symptoms Musculoskeletal: Reports: Back Pain Skin: Reports: No Symptoms Neurological: Reports: No Symptoms Psychiatric: Reports: No Symptoms Hematologic/Lymphatic: Reports: No Symptoms Immunologic: Reports: No Symptoms ED EXAM,LOWER BACK PAIN/INJURY - Physical Exam Exam: See Below Exam Limited By: No Limitations General Appearance: Alert, WD/WN, No Apparent Distress Head: Atraumatic, Normocephalic Neck: Normal Inspection, Supple, Non-Tender Respiratory/Chest: No Respiratory Distress, Lungs Clear, Normal Breath Sounds Cardiovascular: Normal Peripheral Pulses GI/Abdominal: Normal Bowel Sounds, Soft, Non-Tender Extremities: Normal Inspection, Normal Range of Motion Neurological: Alert, Oriented x 3 Course - Vital Signs Last Recorded V/S: Last Vital Signs Temp 96.5 F L 03/15/21 10:00 Pulse 90 03/15/21 10:13 Resp 18 03/15/21 10:13 BP 121/75 03/15/21 10:13 Pulse Ox 97 03/15/21 10:13 - Orders/Labs/Meds Meds: Medications Discontinued Medications Generic Name Dose Route Start Last Admin Trade Name Felix PRN Reason Stop Dose Admin Acetaminophen 650 mg 03/15/21 09:59 03/15/21 10:03 Acetaminophen 325 Mg Tab PO 03/15/21 10:00 650 mg NOW ONE Administration - Re-Assessments/Exams Free Text/Narrative Re-Assessment/Exam: 03/15/21 12:[address] shows age-indeterminate fractures with L2 possibly being acute. We spoke to neurosurgery at [facility] Dr. Johnson who states this is as a pain control and bed rest does not need to be sent over to be evaluated. We called that the long-term made him aware of these findings. We will send patient home with pain meds and patient can follow-up with PMD as needed. Departure - Departure Time of Disposition: 12:11 Disposition: Home, Self-Care 01 Condition: Good Clinical Impression: Lumbar compression fracture - Discharge Information *PRESCRIPTION DRUG MONITORING PROGRAM REVIEWED*: Not Applicable *COPY OF PRESCRIPTION DRUG MONITORING REPORT IN PATIENT AMARILYS: Not Applicable Instructions: Lumbar Spine Fracture Referrals: Rashad Snyder MD [Primary Care Provider] - Forms: ED Department Discharge Additional Instructions: The following information is given to patients seen in the emergency department who are being discharged to home. This information is to outline your options for follow-up care. We provide all patients seen in our emergency department with a follow-up referral. The need for follow-up, as well as the timing and circumstances, are variable depending upon the specifics of your emergency department visit. If you don't have a primary care physician on staff, we will provide you with a referral. We always advise you to contact your personal physician following an emergency department visit to inform them of the circumstance of the visit and for follow-up with them and/or the need for any referrals to a consulting specialist. The emergency department will also refer you to a specialist when appropriate. This referral assures that you have the opportunity for follow-up care with a specialist. All of these measure are taken in an effort to provide you with optimal care, which includes your follow-up. Under all circumstances we always encourage you to contact your private physician who remains a resource for coordinating your care. When calling for follow-up care, please make the office aware that this follow-up is from your recent emergency room visit. If for any reason you are refused follow-up, please contact the [facility] Emergency Department at and asked to speak to the emergency department charge nurse. Please follow up with your primary care physician. If you do not have a primary care physician, see below: [facility] [address] [place] [id number] [facility] [address] [place] [id number] You were seen today after a fall from standing. Your CT scan shows some age- indeterminate fractures which could be chronic seen fractures. We did speak to the neurosurgeon Dr. Johnson at [facility] about your case and he states this does not need to be seen in follow-up by him and that you can follow-up with primary care physician. He recommends chest pain control and bed rest. You already are wheelchair-bound we recommend not ambulating until you see a provider in the next few weeks. Have sent you home with some strong pain medications. Please take Tylenol or Motrin as needed but the pain is too severe you can take the Percocet to be sent. Sepsis Event Note (ED) - Focused Exam Vital Signs: Vital Signs Temp Pulse Resp BP Pulse Ox 03/15/21 10:13 90 18 121/75 97 03/15/21 10:00 96.5 F L 98 18 119/77 97 - Assessment/Plan Plan: Patient is a 70-year-old female who presents today for a fall while trying to get in her wheelchair. She does have some tenderness along the spinal area will obtain imaging and provide pain control.
--- NOTE | 2021-03-15 11:11 | CR ---
INDICATION: Trauma, fall. TECHNIQUE: Chest 2 views COMPARISON: 01/14/2021. FINDINGS: Cardiovascular and mediastinum: Heart size and vasculature are normal in caliber and appearance. Lungs and pleural spaces: Lungs are clear. No sign of infiltrate or mass. No sign of pleural effusion. No pneumothorax. Bones and soft tissues: No significant findings. IMPRESSION: No acute findings and no significant changes from the prior exam. Dictated by Toño Miller MD @ 03/15/2021 11:11:[address] Toño Miller @ Mar 15 2021 11:11AM
--- NOTE | 2021-03-15 11:24 | CT ---
INDICATION: Trauma, fall with pain. TECHNIQUE: CT cervical spine without contrast. COMPARISON: None FINDINGS: Vertebrae: Alignment is normal. There are no fractures or suspicious bony lesions. Discs and facet joints: Degenerative disc spondylosis present at C5-6 and C6-7. Disc spaces and facets are otherwise within normal limits. Extraspinal findings: Prevertebral soft tissues, visualized airway, and visualized lungs are unremarkable. IMPRESSION: No sign of acute injury in the cervical spine. Please note that all CT scans at this facility use dose modulation, iterative reconstruction, and/or weight-based dosing when appropriate to reduce radiation dose to as low as reasonably achievable. Dictated by Toño Miller MD @ 03/15/2021 11:22:[address] Toño Miller @ Mar 15 2021 11:22AM
--- NOTE | 2021-03-15 11:32 | CT ---
INDICATION: Trauma, fall with pain. TECHNIQUE: CT lumbar spine without contrast. COMPARISON: None FINDINGS: Vertebrae: Alignment is normal. Moderate to severe compression fracture of the L2 and to a lesser extent L1 and L5 vertebral bodies. There is also generalized sclerosis of the L2 vertebral body and superior aspect of the L5 vertebral body. Discs and facet joints: Multiple posterior disc bulges. Moderate diffuse facet joint spondylosis. Extraspinal findings: Prevertebral soft tissues and visualized retroperitoneum are unremarkable. IMPRESSION: Compression fractures involving the L1, L2 and L5 vertebral bodies are of indeterminate age. Acute and/or chronic fractures are possible. Specifically the L2 fracture is suspicious for an acute component. Please note that all CT scans at this facility use dose modulation, iterative reconstruction, and/or weight-based dosing when appropriate to reduce radiation dose to as low as reasonably achievable. Dictated by Toño Miller MD @ 03/15/2021 11:30:[address] Toño Miller @ Mar 15 2021 11:30AM
--- NOTE | 2021-03-15 11:47 | CT ---
INDICATION: Trauma, fall with pain. TECHNIQUE: CT thoracic spine without contrast. COMPARISON: None FINDINGS: Vertebral alignment: Alignment is normal. Vertebrae: There are no fractures or suspicious bony lesions. Discs and facet joints: Disc spaces and facets are within normal limits for age. Extraspinal findings: Prevertebral soft tissues, visualized airway, and visualized lungs are unremarkable. IMPRESSION: Unremarkable thoracic spine CT. No sign of acute injury. Please note that all CT scans at this facility use dose modulation, iterative reconstruction, and/or weight-based dosing when appropriate to reduce radiation dose to as low as reasonably achievable. Dictated by Toño Miller MD @ 03/15/2021 11:44:[address] Toño Miller @ Mar 15 2021 11:44AM
== END 2021-03-15 12:35 | disposition home or self-care (01) ==
LOC: MW.ED 09:39
DX: S32.019A Unspecified fracture of first lumbar vertebra, initial encounter for closed fracture (principal); S32.029A Unspecified fracture of second lumbar vertebra, initial encounter for closed fracture; S32.059A Unspecified fracture of fifth lumbar vertebra, initial encounter for closed fracture; N64.4 Mastodynia; I10 Essential (primary) hypertension; Z79.899 Other long term (current) drug therapy; W18.30XA Fall on same level, unspecified, initial encounter; Y92.129 Unspecified place in nursing home as the place of occurrence of the external cause
CPT/HCPCS: 71046; 72125; 72128; 72131; 99284; A9270

== ENCOUNTER 2021-11-19 18:03 | Emergency (ER) | payer MEDICARE, MEDICAID, OTHER ==
[2021-11-19] MEDS ORDERED: Sodium Chloride 0.9% 2.5 ML Syringe FLUSH PRN (18:24)
[2021-11-19] MEDS ORDERED: Sodium Chloride 0.9% 1,000 ML IV ONE ×2 (18:24→20:08)
[2021-11-19] MEDS ORDERED: Sodium Chloride 0.9% 10 ML Syringe FLUSH PRN (18:24)
[2021-11-19 19:44] LABS: BLOOD UREA NITROGEN,BUN 23 mg/dL (7.0-18.0); CARBON DIOXIDE,CO2 25.2 mmol/L (21.0-32.0); CHLORIDE,CL 93 mmol/L (98-107); ESTIMATED GFR 48.7 ml/min; GLUCOSE RANDOM 410 mg/dL (74-106); POTASSIUM,K 4.5 mmol/L (3.5-5.1); SODIUM,NA 130 mmol/L (136-145)
[2021-11-19 19:53] LABS: CORONAVIRUS COVID-19 NAA NEGATIVE (NEGATIVE); INFLUENZA A NAA NEGATIVE (NEGATIVE); INFLUENZA B NAA NEGATIVE (NEGATIVE)
[2021-11-19] MEDS ORDERED: Glucagon,Human Recombinant 1 MG Vial IM PRN (20:08)
[2021-11-19] MEDS ORDERED: 50% Dextrose in Water 50 ML Syringe IVPUSH PRN (20:08)
[2021-11-19] MEDS ORDERED: Insulin Regular, Human 100 Units/ML 10 ML Vial IVPUSH ONE (20:08)
[2021-11-19] MEDS ORDERED: metFORMIN 500 MG Tab PO ONE (21:16)
== END 2021-11-19 21:50 | disposition home or self-care (01) ==
LOC: MW.ED 18:03
DX: E11.9 Type 2 diabetes mellitus without complications (principal); R74.01 Elevation of levels of liver transaminase levels; I10 Essential (primary) hypertension; Z20.822 Contact with and (suspected) exposure to COVID-19
CPT/HCPCS: 0240U; 36415; 71045; 80053; 81001; 83036; 83605; 83690; 83735; 84484; 85025; 85610; 93005; 99285; A9270; J3490; J7030; 93010; 99284; J1815-GY

== ENCOUNTER 2022-04-07 20:40 | Emergency (ER) | payer MEDICARE, MEDICAID ==
[2022-04-07 21:23] LABS: CARBON DIOXIDE,CO2 24.8 mmol/L (21.0-32.0); POTASSIUM,K 4.2 mmol/L (3.5-5.1)
[2022-04-07] MEDS ORDERED: Morphine 2 MG/ML SYRINGE IVPUSH ONE (21:27)
[2022-04-07] MEDS ORDERED: Sodium Chloride 0.9% 500 ML IV SCH (22:00)
[2022-04-07] MEDS ORDERED: Ondansetron 4 MG/2 ML SDV ONE (22:13)
[2022-04-07] MEDS ORDERED: Ondansetron 4 MG/2 ML SDV IVPUSH STA (22:14)
[2022-04-07] MEDS ORDERED: Iopamidol 755 MG/ML 500 ML Multipack Bottle IVPUSH ONE (22:47)
== END 2022-04-08 01:37 | disposition home or self-care (01) ==
LOC: MW.ED 20:40
DX: S30.0XXA Contusion of lower back and pelvis, initial encounter (principal); U07.1 COVID-19; I10 Essential (primary) hypertension; E11.9 Type 2 diabetes mellitus without complications; Z79.899 Other long term (current) drug therapy; Z79.84 Long term (current) use of oral hypoglycemic drugs; W19.XXXA Unspecified fall, initial encounter
CPT/HCPCS: 36415; 70450; 71045; 71275; 72125; 72128; 72131; 80053; 84484; 85025; 85379; 93005; 96361; 96374; 96375; 99285; J2270; J2405; J7040; Q9967; U0002; 93010

== ENCOUNTER 2023-02-27 13:48 | Inpatient (IN) | payer MEDICARE ==
[2023-02-27] MEDS ORDERED: Sodium Chloride 0.9% 10 ML Syringe FLUSH PRN (13:50)
[2023-02-27] MEDS ORDERED: Sodium Chloride 0.9% 500 ML IV ONE (13:50)
[2023-02-27] MEDS ORDERED: Sodium Chloride 0.9% 2.5 ML Syringe FLUSH PRN (13:50)
[2023-02-27] MEDS ORDERED: Cefepime 2 GM in Sodium Chloride 0.9% 50 ML IV ONE (13:52)
[2023-02-27 14:08] LABS: BASE EXCESS VENOUS 0.1 (-2.0-3.0); PH,VENOUS 7.46 (7.31-7.41)
[2023-02-27 14:11] LABS: BASOPHILS PERCENT AUTO 0.2 % (0.0-1.5); HEMATOCRIT 43.3 % (36.0-46.0); HEMOGLOBIN 14.2 g/dL (12.0-16.0); LYMPHOCYTES ABSOLUTE AUTO 1.4 K/uL (0.6-2.4); LYMPHOCYTES PERCENT AUTO 12.5 % (16.0-40.0); MEAN CORPUSCULAR HGB CONC 32.8 g/dL (31.0-37.0); MEAN CORPUSCULAR VOLUME 85.4 fL (80.0-98.0); MONOCYTES ABSOLUTE AUTO 0.6 K/uL (0.0-0.8); MONOCYTES PERCENT AUTO 5.6 % (0.0-15.0); NEUTROPHILS PERCENT AUTO 81.7 % (48.0-80.0); NRBC ABSOLUTE 0 K/uL; PLATELET COUNT,PLT 256 K/uL (150-400); RED BLOOD CELL COUNT 5.07 M/uL (4.30-5.90); WHITE BLOOD CELL COUNT,WBC 10.98 K/uL (4.0-11.0)
[2023-02-27 14:26] LABS: INR 1.11 (0.86-1.11); PTT,PARTIAL THROMBOPLSTIN TIME 35.6 SEC (23.9-30.7)
[2023-02-27 14:52] LABS: A/G RATIO 0.7 (0.9-1.6); ALBUMIN 3.3 g/dL (3.4-5.0); BILIRUBIN TOTAL 0.3 mg/dL (0.2-1.0); CALCIUM 9.2 mg/dL (8.5-10.1); CARBON DIOXIDE,CO2 22.1 mmol/L (21.0-32.0); EST CRCL DRUG DOSING (CG) 53.37 mL/min; PROTEIN TOTAL,TP 7.9 g/dL (6.4-8.2)
[2023-02-27 14:59] LABS: BILIRUBIN,URINE NEGATIVE (NEGATIVE); COLOR,URINE YELLOW; GLUCOSE,URINE NEGATIVE (NEGATIVE); KETONES,URINE NEGATIVE (NEGATIVE); LEUKOCYTE ESTERASE,URINE NEGATIVE (NEGATIVE); NITRITE,URINE NEGATIVE (NEGATIVE); OCCULT BLOOD,URINE SMALL (NEGATIVE); PROTEIN,URINE 100 mg/dL (NEGATIVE); UROBILINOGEN,URINE 0.2 EU/dL (<2.0)
[2023-02-27 15:06] LABS: APPEARANCE,URINE HAZY
[2023-02-27 15:07] LABS: BACTERIA,URINE FEW (NEGATIVE); EPITHELIAL CELLS,URINE FEW (NONE-FEW); RBC,URINE 0-3 (0-2/HPF)
[2023-02-27] MEDS ORDERED: Iopamidol 755 Mg/ML 100 ML Bottle IVPUSH ONE (16:33)
[2023-02-27] MEDS ORDERED: Acetaminophen 325 MG Tab PO ONE (17:03)
[2023-02-27] MEDS ORDERED: Sodium Chloride 0.9% 500 ML IV SCH (17:15)
[2023-02-27] MEDS ORDERED: Ondansetron 4 MG/2 ML SDV IVPUSH ONE (18:08)
[2023-02-27] MEDS ORDERED: fentaNYL 50 MCG/ML SDV IVPUSH ONE (18:08)
[2023-02-27] MEDS ORDERED: Naloxone 0.4 MG/ML SDV IVPUSH PRN (18:08)
[2023-02-27] MEDS ORDERED: 50% Dextrose in Water 50 ML Syringe IVPUSH PRN (18:48)
[2023-02-27] MEDS ORDERED: Glucagon,Human Recombinant 1 MG Vial IM PRN (18:48)
[2023-02-27] MEDS: Enoxaparin 40 MG/0.4 ML Syringe SUBCUT SCH (19:14)
[2023-02-27] MEDS: Azithromycin 500 MG in Sodium Chloride 0.9% 250 ML IV SCH (19:17)
[2023-02-27] MEDS: Cefepime 2 GM Vial IVPUSH SCH (23:27)
[2023-02-28] MEDS: Cefepime 2 GM Vial IVPUSH SCH ×2 (06:18→15:44)
[2023-02-28 06:39] LABS: BASOPHILS PERCENT AUTO 0.2 % (0.0-1.5); EOSINOPHILS PERCENT AUTO 0.1 % (0.0-7.0); HEMATOCRIT 43.6 % (36.0-46.0); HEMOGLOBIN 14.5 g/dL (12.0-16.0); LYMPHOCYTES ABSOLUTE AUTO 1.5 K/uL (0.6-2.4); LYMPHOCYTES PERCENT AUTO 13.3 % (16.0-40.0); MEAN CORPUSCULAR HEMOGLOBIN 28.5 pg (27.0-32.0); MEAN CORPUSCULAR HGB CONC 33.3 g/dL (31.0-37.0); MEAN CORPUSCULAR VOLUME 85.8 fL (80.0-98.0); MONOCYTES ABSOLUTE AUTO 0.6 K/uL (0.0-0.8); MONOCYTES PERCENT AUTO 5.5 % (0.0-15.0); NEUTROPHILS PERCENT AUTO 80.9 % (48.0-80.0); NRBC ABSOLUTE 0 K/uL; PLATELET COUNT,PLT 223 K/uL (150-400); RED BLOOD CELL COUNT 5.08 M/uL (4.30-5.90); WHITE BLOOD CELL COUNT,WBC 11.14 K/uL (4.0-11.0)
[2023-02-28 06:44] LABS: CALCIUM 8.7 mg/dL (8.5-10.1); CARBON DIOXIDE,CO2 22.1 mmol/L (21.0-32.0); CREATININE 1.1 mg/dL (0.6-1.0); EST CRCL DRUG DOSING (CG) 48.52 mL/min; POTASSIUM,K 4.2 mmol/L (3.5-5.1)
[2023-02-28] MEDS ORDERED: Acetaminophen 1,000 MG in Premix Bag 1 BAG IV ONE (08:12)
[2023-02-28] MEDS: Insulin Aspart 100 Units/ML 3 ML Pen SUBCUT SCH ×3 (08:51→16:41)
[2023-02-28] MEDS ORDERED: Sodium Chloride 0.9% 1,000 ML IV ONE (09:30)
[2023-02-28 10:32] LABS: CORONAVIRUS COVID-19 NAA NEGATIVE (NEGATIVE); INFLUENZA A NAA NEGATIVE (NEGATIVE); INFLUENZA B NAA NEGATIVE (NEGATIVE)
[2023-02-28 10:39] LABS: A/G RATIO 0.7 (0.9-1.6); ALBUMIN 2.9 g/dL (3.4-5.0); BILIRUBIN TOTAL 0.3 mg/dL (0.2-1.0); CALCIUM 8.5 mg/dL (8.5-10.1); CARBON DIOXIDE,CO2 21.7 mmol/L (21.0-32.0); CREATININE 1.4 mg/dL (0.6-1.0); EST CRCL DRUG DOSING (CG) 38.12 mL/min; PROTEIN TOTAL,TP 7.2 g/dL (6.4-8.2)
[2023-02-28] MEDS: Cefepime 2 GM in Sodium Chloride 0.9% 50 ML IV SCH (17:39)
[2023-02-28] MEDS: Enoxaparin 40 MG/0.4 ML Syringe SUBCUT SCH (18:21)
[2023-02-28] MEDS: Azithromycin 500 MG in Sodium Chloride 0.9% 250 ML IV SCH (18:21)
[2023-03-01] MEDS: Cefepime 2 GM in Sodium Chloride 0.9% 50 ML IV SCH ×2 (05:48→17:00)
[2023-03-01 06:29] LABS: BASOPHILS PERCENT AUTO 0.3 % (0.0-1.5); EOSINOPHILS PERCENT AUTO 0.5 % (0.0-7.0); HEMATOCRIT 40.9 % (36.0-46.0); LYMPHOCYTES ABSOLUTE AUTO 1.7 K/uL (0.6-2.4); LYMPHOCYTES PERCENT AUTO 21.4 % (16.0-40.0); MEAN CORPUSCULAR HEMOGLOBIN 27.7 pg (27.0-32.0); MEAN CORPUSCULAR HGB CONC 31.8 g/dL (31.0-37.0); MONOCYTES ABSOLUTE AUTO 0.8 K/uL (0.0-0.8); MONOCYTES PERCENT AUTO 10.1 % (0.0-15.0); NEUTROPHILS ABSOLUTE AUTO 5.4 K/uL (1.4-5.7); NEUTROPHILS PERCENT AUTO 67.7 % (48.0-80.0); NRBC ABSOLUTE 0 K/uL; PLATELET COUNT,PLT 203 K/uL (150-400); WHITE BLOOD CELL COUNT,WBC 7.99 K/uL (4.0-11.0)
[2023-03-01 07:00] LABS: CALCIUM 8.2 mg/dL (8.5-10.1); CARBON DIOXIDE,CO2 21.6 mmol/L (21.0-32.0); CREATININE 1.1 mg/dL (0.6-1.0); EST CRCL DRUG DOSING (CG) 48.52 mL/min; POTASSIUM,K 3.7 mmol/L (3.5-5.1)
[2023-03-01 09:07] LABS: BORDETELLA PARAPERT IS1001 Not Detected (Not Detected)
[2023-03-01] MEDS: Insulin Aspart 100 Units/ML 3 ML Pen SUBCUT SCH ×3 (09:34→16:44)
[2023-03-01] MEDS: Polyethylene Glycol 3350 Powder 17 GM Packet PO SCH (10:55)
[2023-03-01] MEDS ORDERED: Ondansetron 4 MG Tab.DIS PO PRN (11:52)
[2023-03-01] MEDS: Acetaminophen 325 MG Tab PO PRN (14:06)
[2023-03-01] MEDS: Enoxaparin 40 MG/0.4 ML Syringe SUBCUT SCH (18:06)
[2023-03-01] MEDS: Azithromycin 500 MG in Sodium Chloride 0.9% 250 ML IV SCH (18:07)
[2023-03-02] MEDS: Acetaminophen 325 MG Tab PO PRN ×2 (05:25→12:58)
[2023-03-02] MEDS: Cefepime 2 GM in Sodium Chloride 0.9% 50 ML IV SCH (05:25)
[2023-03-02 06:13] LABS: BASOPHILS PERCENT AUTO 0.4 % (0.0-1.5); EOSINOPHILS ABSOLUTE AUTO 0.2 K/uL (0.0-0.7); EOSINOPHILS PERCENT AUTO 3.4 % (0.0-7.0); HEMATOCRIT 39.1 % (36.0-46.0); HEMOGLOBIN 12.6 g/dL (12.0-16.0); LYMPHOCYTES ABSOLUTE AUTO 1.7 K/uL (0.6-2.4); LYMPHOCYTES PERCENT AUTO 33.9 % (16.0-40.0); MEAN CORPUSCULAR HEMOGLOBIN 27.7 pg (27.0-32.0); MEAN CORPUSCULAR HGB CONC 32.2 g/dL (31.0-37.0); MEAN CORPUSCULAR VOLUME 85.9 fL (80.0-98.0); MONOCYTES ABSOLUTE AUTO 0.6 K/uL (0.0-0.8); MONOCYTES PERCENT AUTO 12.4 % (0.0-15.0); NEUTROPHILS ABSOLUTE AUTO 2.5 K/uL (1.4-5.7); NEUTROPHILS PERCENT AUTO 49.9 % (48.0-80.0); NRBC ABSOLUTE 0 K/uL; PLATELET COUNT,PLT 200 K/uL (150-400); RED BLOOD CELL COUNT 4.55 M/uL (4.30-5.90); WHITE BLOOD CELL COUNT,WBC 4.99 K/uL (4.0-11.0)
[2023-03-02 06:38] LABS: CALCIUM 8.5 mg/dL (8.5-10.1); CARBON DIOXIDE,CO2 24.2 mmol/L (21.0-32.0); EST CRCL DRUG DOSING (CG) 53.37 mL/min; POTASSIUM,K 3.8 mmol/L (3.5-5.1)
[2023-03-02] MEDS: Insulin Aspart 100 Units/ML 3 ML Pen SUBCUT SCH ×2 (07:55→11:37)
[2023-03-02] MEDS: Polyethylene Glycol 3350 Powder 17 GM Packet PO SCH ×2 (09:23→09:27)
== END 2023-03-02 13:06 | DRG 871 ==
LOC: MW.ED 13:48 → MW.MS 18:07 → OBSVTOIN 02-28 09:28 → MW.MS 03-01 10:25
PROVIDERS: ADMIT Internal Medicine; ATTEND Internal Medicine
DX: A41.9 Sepsis, unspecified organism (principal); R09.02 Hypoxemia; E86.0 Dehydration; Z20.822 Contact with and (suspected) exposure to COVID-19; G30.9 Alzheimer's disease, unspecified; F02.80 Dementia in other diseases classified elsewhere, unspecified severity, without behavioral disturbance, psychotic disturbance, mood disturbance, and anxiety; A41.89 Other specified sepsis; J18.9 Pneumonia, unspecified organism; N30.00 Acute cystitis without hematuria; K21.9 Gastro-esophageal reflux disease without esophagitis; R65.20 Severe sepsis without septic shock; Z66 Do not resuscitate; E11.9 Type 2 diabetes mellitus without complications; I25.10 Atherosclerotic heart disease of native coronary artery without angina pectoris; I10 Essential (primary) hypertension; E78.5 Hyperlipidemia, unspecified; K59.00 Constipation, unspecified; Z79.4 Long term (current) use of insulin; Z95.1 Presence of aortocoronary bypass graft; Z79.899 Other long term (current) drug therapy; Z98.890 Other specified postprocedural states
CPT/HCPCS: 0240U; 36415; 70450; 71045; 71260; 74177; 76700; 80048; 80053; 81001; 82140; 82803; 82947; 83605; 83690; 84484; 85025; 85610; 85730; 87040; 87486; 87581; 87633; 87798; 93005; 97163; 51702; 93010; 96365; 96366; 96372; 96375; 96376; 99222; 99232; 99239; 99285; 99285-25; A9270-GY; G0378; J0131; J0456; J0692; J1650; J1815-GY; J2405; J3010; J3490; J7030; J7040; J7050; Q9967; U0002

== ENCOUNTER 2023-06-03 14:20 | Emergency (ER) | payer MEDICARE, OTHER, MEDICAID ==
[2023-06-03 14:53] LABS: BASOPHILS PERCENT AUTO 0.4 % (0.0-1.5); EOSINOPHILS ABSOLUTE AUTO 0.2 K/uL (0.0-0.7); EOSINOPHILS PERCENT AUTO 2.1 % (0.0-7.0); HEMATOCRIT 41.3 % (36.0-46.0); LYMPHOCYTES ABSOLUTE AUTO 2.5 K/uL (0.6-2.4); LYMPHOCYTES PERCENT AUTO 26.4 % (16.0-40.0); MEAN CORPUSCULAR HEMOGLOBIN 27.4 pg (27.0-32.0); MEAN CORPUSCULAR HGB CONC 31.5 g/dL (31.0-37.0); MEAN CORPUSCULAR VOLUME 86.9 fL (80.0-98.0); MONOCYTES ABSOLUTE AUTO 0.6 K/uL (0.0-0.8); MONOCYTES PERCENT AUTO 6.4 % (0.0-15.0); NEUTROPHILS PERCENT AUTO 64.7 % (48.0-80.0); NRBC ABSOLUTE 0 K/uL; PLATELET COUNT,PLT 299 K/uL (150-400); RED BLOOD CELL COUNT 4.75 M/uL (4.30-5.90); WHITE BLOOD CELL COUNT,WBC 9.34 K/uL (4.0-11.0)
[2023-06-03] MEDS ORDERED: Sodium Chloride 0.9% 500 ML IV ONE (15:09)
[2023-06-03 15:23] LABS: A/G RATIO 0.7 (0.9-1.6); ALBUMIN 3.3 g/dL (3.4-5.0); BILIRUBIN TOTAL 0.2 mg/dL (0.2-1.0); CALCIUM 8.8 mg/dL (8.5-10.1); CREATININE 1.1 mg/dL (0.6-1.0); EST CRCL DRUG DOSING (CG) 41.37 mL/min; MAGNESIUM 1.5 mg/dL (1.8-2.4); POTASSIUM,K 3.7 mmol/L (3.5-5.1); PROTEIN TOTAL,TP 7.8 g/dL (6.4-8.2); TSH ULTRASENSITIVE 1.95 uIU/mL (0.36-3.74)
[2023-06-03 16:04] LABS: BILIRUBIN,URINE NEGATIVE (NEGATIVE); GLUCOSE,URINE >=1000 mg/dL (NEGATIVE); KETONES,URINE NEGATIVE (NEGATIVE); LEUKOCYTE ESTERASE,URINE NEGATIVE (NEGATIVE); NITRITE,URINE NEGATIVE (NEGATIVE); OCCULT BLOOD,URINE TRACE-INTACT (NEGATIVE); PH,URINE 5.5 (5.0-8.0); PROTEIN,URINE TRACE mg/dL (NEGATIVE); UROBILINOGEN,URINE 0.2 EU/dL (<2.0)
[2023-06-03 16:08] LABS: D-DIMER QUANTITATIVE 1.39 mg/L FEU (0.00-0.50); PTT,PARTIAL THROMBOPLSTIN TIME 31.7 SEC (23.9-30.7)
[2023-06-03 16:12] LABS: APPEARANCE,URINE SLT CLOUDY; COLOR,URINE DARK YELLOW
[2023-06-03 16:15] LABS: BACTERIA,URINE FEW (NEGATIVE); EPITHELIAL CELLS,URINE OCCASIONAL (NONE-FEW); RBC,URINE 0-2 (0-2/HPF)
[2023-06-03] MEDS ORDERED: Iopamidol 755 Mg/ML 100 ML Bottle IVPUSH ONE (17:43)
== END 2023-06-03 19:32 | disposition home or self-care (01) ==
LOC: MW.ED 14:20
DX: R00.0 Tachycardia, unspecified (principal); K21.9 Gastro-esophageal reflux disease without esophagitis; I10 Essential (primary) hypertension; E11.9 Type 2 diabetes mellitus without complications; Z79.899 Other long term (current) drug therapy; Z79.4 Long term (current) use of insulin
CPT/HCPCS: 36415; 71045; 71275; 80053; 81001; 82947; 83690; 83735; 84443; 84484; 85025; 85379; 85730; 93005; 96360; 96361; 99285; J7030; Q9967; 93010; 99284

== ENCOUNTER 2023-07-16 15:36 | Emergency (ER) | payer MEDICARE, OTHER, MEDICAID ==
[2023-07-16] MEDS ORDERED: traMADol 50 MG Tab PO ONE ×2 (17:23→17:30)
[2023-07-16] MEDS ORDERED: Ondansetron 4 MG Tab.DIS PO ONE ×2 (17:37→17:45)
== END 2023-07-16 20:31 | disposition home or self-care (01) ==
LOC: MW.ED 15:36
DX: M25.552 Pain in left hip (principal); E11.9 Type 2 diabetes mellitus without complications; I25.10 Atherosclerotic heart disease of native coronary artery without angina pectoris; I10 Essential (primary) hypertension; Z95.1 Presence of aortocoronary bypass graft; E78.5 Hyperlipidemia, unspecified; Z79.84 Long term (current) use of oral hypoglycemic drugs; Z79.4 Long term (current) use of insulin; W19.XXXA Unspecified fall, initial encounter
CPT/HCPCS: 70450; 72192; 73502; 73562; 99284; A9270; 99283